=== PATIENT | male | born 1945 | race Two or more races ===

== ENCOUNTER 2023-12-04 23:13 | Inpatient (IN) | payer OTHER, SELFPAY ==
[2023-12-04 13:42] VITALS: BP 133/59
--- NOTE | 2023-12-04 14:38 | ED.GENMED ---
History of Present Illness
General
Chief Complaint: Musculo-Skeletal Complaint
Source: patient
Exam Limitations: none
Time Seen by Provider: 12/04/23 14:04
Nursing documentation reviewed up to this point in time: agreed with
History of Present Illness
History of Present Illness:
78-year-old male past medical history of COPD hypertension presenting to the emergency department today with concerns of jerking movement of the right extremities over the past 2 weeks. He contact his primary care debate about this and was referred
to neuro but cannot get an appointment for 4 months. Denies specific numbness weakness some discomfort coming from the neck into the right arm and right leg.
Past History
Past History
ED Past Medical History: COPD, HTN and Other (prostate)
ED Past Surgical History: None
Patient has exhibited threatening behavior?: No
PSI?: No
Social History
Living: with family
Review of Systems
Review of Systems
Allergies reviewed?: Yes
All Other Systems: ROS reviewed and negative except as documented in HPI and ROS
Phy Exam
Physical Exam
Physical Exam:
GENERAL: Alert , in no apparent distress
EYE: pupils equal and reactive
NECK: Supple, no significant adenopathy.
ENT: o/p clr, mmm.
CARDIAC: Regular rate and rhythm .
LUNGS: Clear breath sounds bilaterally, no acute respiratory distress, no wheezes/rales/rhonchi
ABDOMEN: Soft, without focal tenderness, no r/g, no cvat
NEUROLOGICAL: Alert and oriented, able to move purposefully with the right upper and right lower extremity very jerky and random movements when not with intention. Able to do finger-nose and [id number]-it-[id number]
SKIN: Warm and dry, skin intact.
MUSCULOSKELETAL: No edema, well perfused.
PSYCH: Normal and appropriate interaction.
Course
Orders/Labs/Results
Orders:
Orders
12/04/23 14:27
EKG [Electrocardiogram (*1)] Urgent
Reason for Study: Fatigue / Weakness
12/04/23 14:28
EKG- Treatment ONCE
12/04/23 14:30
CBC/With Diff [Complete Blood Count/With Diff] Urgent
CMP [Comprehensive Metabolic Panel] Urgent
12/04/23 15:02
CT Head & Neck Angio W/wo IV Urgent
Comment:
Reason For Exam: right nekc pain neuro symptoms
12/04/23 22:59
Admit/Transfer Patient As Directed
Co-Sign Provider:
Level of Care: Inpatient admission
Assign to:: Medical/Surgical
Physician / Group: Hospitalist
Diagnosis: movement disorder
Reason for Hospitalization: movement disorder
Expected length of stay greater than two midnights?: Yes
ELOS- Estimated Length of Stay in days: 3
I certify the patient meets the requirements for IP care: Yes
PRN Pain Medication Management As Directed
May give lesser potent ordered pain med per pt: Yes
preference::
Protocol:: Medication orders for pain may be administered in a
manner that supports deferring to patient preference
when the pt is:
- Requesting an ordered lesser potent pain medication.
Least to most potent pain medications are defined
as: acetaminophen < NSAID < tramadol < opioids
(morphine, oxycodone, hydromorphone).
- Requesting a lesser dose of the same medication IF
ORDERED.
- Requesting a less intrusive route of administration
if both routes are prescribed by the provider (PO <
IV).
12/04/23 23:00
Code Status As Directed
Resuscitation Status: Full Code
12/04/23 23:44
Acetaminophen [Tylenol/Feverall] 650 mg RECTAL Q4HPRN PRN
Acetaminophen [Tylenol] 650 mg PO Q4HPRN PRN
12/04/23 23:44
Consult Notification Routine
Specialty to Notify: Neurology
Date consulting provider notified: 12/05/23
Time consulting provider notified: 08:23
Notified:: Provider
NEUROLOGY CONSULT Urgent
Consulting Provider: Alfonso Kaiser
Was physician already notified: No
Reason for consult: chorea and right leg dyskenisea
Activity As Directed
Activity Level: With Assistance
NIH Stroke Scale As Directed
Directions: Per protocol
Comment: every shift and with any change in condition or mental status
Neurological Checks As Directed
Frequency: q4h
Additional Instructions:: q4h x 24h upon admission to the floor, then qshift & with any change in condition
and mental status
Patient Education As Directed
Type: Stroke education packet
Comment: provide to patient and family
Pneumatic Compression Sleeves As Directed
Type: Knee high
Vital Signs As Directed
Frequency: Per unit guidelines
Ot Eval And Treat Routine
Speech Therapy Eval & Treat Routine
DX Deep Vein Thrombosis Video Routine
12/05/23 06:47
Cardiovascular Evaluation IN AM
Abnormal Lab Results
12/04/23
14:30
RBC 4.54 L 10^6/uL
(4.70-6.10)
Immature Gran % 0.6 H %
(0-0.5)
BUN 22 H mg/dl
(9-20)
Glucose 125 H mg/dl
(70-99)
12/04/23 14:30
12/04/23 14:30
Vital Signs
Initial and Last Documented VS:
Initial Vital Signs
Temp Pulse Resp BP Pulse Ox
98.3 F 94 18 133/59 98
12/04/23 13:42 12/04/23 13:42 12/04/23 13:42 12/04/23 13:42 12/04/23 13:42
Last Documented Vital Signs
Temp Pulse Resp BP Pulse Ox
97.9 F 85 18 136/97 97
12/05/23 08:03 12/05/23 08:03 12/05/23 08:03 12/05/23 08:03 12/05/23 08:03
MDM/Problems Addressed
MDM/Problems Addressed:
78-year-old male presenting to the emergency department concerns of jerky random movements from the right side on his right upper and right lower extremity. Patient with significant difficulty with ambulation secondary to these jerking movements.
Patient with difficulty with finger-nose and [id number]. Does have full strength and sensation now. Otherwise here vital signs are normal labs are unremarkable CT angiogram of the head and neck does not show any immediate emergent pathology does
show some degree of stenosis diffusely.
*Critical Care Note
Total Time (30-74mins, 75-104mins- exclusive of procedures): Not Applicable
ED Attending Note
-
Portions of this chart may have been created with voice recognition software.� Occasional wrong word or��sound alike� substitutions may have occurred due to the inherent limitations of voice recognition software.
Discharge Plan
Departure
Patient Disposition: Admit
Date of Disposition: 12/04/23
Time of Disposition: 20:59
Admit to: Med/Surg
Admit to doctor: Ryley
Presentation/result/management discussed w/ accepting MD/DO: Hospitalist
Patient with high blood pressure during this ER visit?: No
Condition: Good
Covid-19: Not Applicable
Discharge Problem:
Dyskinesia
Interventions
Interventions:
*Risk Screen - Suicide Last Done: 12/04/23 13:42
*General Assessment Last Done: 12/04/23 13:42
*Neglect/Abuse Screening Last Done: 12/04/23 13:42
ED- Fall Risk Assessment Last Done: 12/04/23 20:48
*ED COVID-19 Vaccine History Last Done: 12/04/23 15:07
*Nursing Disposition Last Done: 12/04/23 23:41
ED-Musculoskeletal Assessment Last Done: 12/04/23 15:09
Discharge Date and Time
Discharge Date/Time: 12/04/23 23:42
[2023-12-04 14:39] LABS: % Basophils 1.3 % (0-2); % Eosinophils 5.4 % (0-6); % Immature Granulocytes 0.6 % (0-0.5); % Lymphocytes 25.3 % (20.5-51.1); % Monocytes 9.1 % (1.7-9.3); % Neutrophils 58.3 % (42.2-75.2); Absolute Basophils 0.1 10^3/uL (0-0.2); Absolute Eosinophils 0.3 10^3/uL (0-0.7); Absolute Lymphocytes 1.4 10^3/uL (1.2-3.4); Absolute Monocytes 0.5 10^3/uL (0.1-0.6); Absolute Neutrophils 3.1 10^3/uL (1.4-6.5); Hematocrit 40.3 % (39.0-52.0); Hemoglobin 13.9 g/dL (13.0-18.0); Mean Corp Hgb Conc. 34.5 g/dL (33.0-37.0); Mean Corpuscular Hgb 30.6 pg (27.0-31.0); Mean Corpuscular Volume 88.8 fL (80.0-94.0); Mean Platelet Volume 10.3 fL (7.4-10.4); Nucleated Red Blood Cells % 0 % (-); Platelet Count 197 10^3/uL (130-400); Red Blood Cell Count 4.54 10^6/uL (4.70-6.10); Red Cell Dist. Width 13.7 % (11.5-14.5); White Blood Cell Count 5.4 10^3/uL (4.8-10.8)
[2023-12-04 14:52] LABS: ALT (SGPT) 28 U/L (0-50); AST (SGOT) 35 U/L (17-59); Albumin 4.1 g/dl (3.5-5.0); Alkaline Phosphatase 51 U/L (38-126); Blood Urea Nitrogen 22 mg/dl (9-20); Calcium 9.5 mg/dl (8.4-10.2); Carbon Dioxide 28 mmol/L (22-30); Chloride 103 mmol/L (98-107); Glucose 125 mg/dl (70-99); Potassium 4.8 mmol/L (3.5-5.1); Sodium 137 mmol/L (135-145); Total Bilirubin 0.9 mg/dl (0.2-1.3); Total Protein 6.8 g/dl (6.3-8.2); eGFR > 60.00
[2023-12-04 15:09] VITALS: BMI 23.9
[2023-12-04 21:19] VITALS: BP 134/65
--- NOTE | 2023-12-04 22:50 | HPS.HSE ---
Family Physician
-
Family Physician: * NONE
Chief Complaint
-
dyskenesia
History of Present Illness
78-year-old man with a past medical history of COPD and hypertension, presents to the emergency department with concerns of worsening jerking movement of the right extremities over the past 2 weeks. He cannot get an appointment with neurology
sooner than for 4 months. He denies specific numbness weakness some discomfort coming from the neck into the right arm and right leg. He is having difficulty standing because of the jerking.
Medical History
Past Medical History
Past Medical History: Reports Other
Additional Past Medical History:
COPD,
essential HTN
prostate BPH
past episode of syncope
Past Surgical History: Reports None
Social History
Tobacco: Non-smoker
Alcohol: None
Drug: None
Family History
Family History: Not pertinent
Allergies / Home Medications
Allergies reflects when Allergies were last updated in [facility].
Home Medications with original date entered in [facility]
Allergy/Medication List:
Allergies
Allergy/AdvReac Type Severity Reaction Status Date / Time
erythromycin base Allergy Unknown Verified 11/30/21 08:22
Sulfa (Sulfonamide Allergy Unknown Verified 11/30/21 08:22
Antibiotics)
He likely takes Amlodipine 5mg PO BID
If medication reconciliation has not been performed, why?: Medication List N/A
Review of Systems
-
History Source: Patient
A 12 point ROS was completed and negative except as noted: Yes
Physical Exam
Vital Signs
Vital Signs
Temp Pulse Resp BP Pulse Ox
98.3 F 73 16 134/65 99
12/04/23 21:19 12/04/23 22:15 12/04/23 22:15 12/04/23 21:19 12/04/23 21:19
Physical Exam
General: Well Developed, Well Nourished, Conversant and Appears in Distress; No Comfortable
HEENT: No Ptosis, Nose Appears Normal and Ears Appear Normal
Respiratory: Clear
Cardiac: S1/S2 and Regular Rhythm
GI: Soft, Non Tender and Non Distended
Musculoskeletal: No Clubbing, No Cyanosis and No Edema
Skin: Warm and Dry; No Rash
Neuro: Awake, Alert, Oriented and AO x 3
Psych: Calm
Laboratory Results
-
12/04/23 14:30
12/04/23 14:30
Laboratory Results
Total Bilirubin 0.9 mg/dl (0.2-1.3) 12/04/23 14:30
AST 35 U/L (17-59) 12/04/23 14:30
ALT 28 U/L (0-50) 12/04/23 14:30
Alkaline Phosphatase 51 U/L (38-126) 12/04/23 14:30
Data Reviewed
-
Lab Data: Labs Reviewed by me
Impression/Plan
-
IMPRESSION:
78 man with jerking right leg. CT shows:
No acute intracranial hemorrhage.
Minor chronic microvascular white matter ischemic change.
Moderate to advanced global atrophy.
Right sphenoid sinusitis.
CT angiography of the neck:
Normal aortic branch pattern.
RIGHT carotid system:
Proximal ICA noncalcified plaque. Estimated luminal diameter reduction of 55 and 60%.
Mild partially calcified plaque involving the distal cervical ICA without hemodynamically significant stenosis.
LEFT carotid system:
Plaque at the common carotid artery origin origin with estimated luminal diameter reduction of 50%.
Mild plaque at the bulb without stenosis. Proximal ICA, with estimated luminal diameter reduction of 70-75%.
Small caliber left vertebral artery; developmental hypoplasia versus less likely left likely dissection (age indeterminate).
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
Diffuse confluent calcified plaque involving the cavernous ICA, bilaterally.
Segmental 50% stenosis suggested at the junction of the right petrous and cavernous ICA. No aneurysm.
No cerebral artery aneurysm, significant stenosis, thrombus, or occlusion.
Diffuse hypoplasia of the basilar artery. No aneurysm. No significant stenosis.
PLAN:
1. Jerking of right leg, cause not known, need to r/o nat's chorea
Neurology consult
MRI in am
Full code
VCD for DVTp
[2023-12-04 23:20] VITALS: BP 134/71
[2023-12-04 23:43] VITALS: BMI 22.5
[2023-12-05 07:45] LABS: HDL Cholesterol 38 mg/dl; LDL Cholesterol, Calculated 121 mg/dl; Total Cholesterol 185 mg/dl (50-199); Triglyceride 130 mg/dl (10-149); Very Low Density Lipoprotein 26 mg/dl (0-30)
[2023-12-05 08:03] VITALS: BP 136/97
--- NOTE | 2023-12-05 08:59 | W.PN.HOSP.TC ---
Today's Communication/Plan
-
Repeat MRI with contrast now. Neurology eval.
Assessment / Plan
Assessment / Plan
Physical exam:
General: Well Developed, Well Nourished and No Apparent Distress
HEENT: Normocephalic, Atraumatic and Moist Mucous Membranes
Respiratory: Clear to Auscultation; Negative Wheezes, Rales or Rhonchi
Cardiac: Regular Rhythm and S1/S2
GI: Soft, Nontender and Nondistended
Musculoskeletal: No Clubbing, No Cyanosis and No Edema
Neuro: Awake, Alert and Oriented, dyskinetic movements right leg and arm, paresthesias present. 4 out of 5 all 4 extremities. No diadochokinesia. DTR 2+ symmetrical.
Psych: Calm, normal judgment and insight
A/P:
Dyskinetic movements and abnormal brain MRI:
Differential includes stroke versus chorea secondary to infectious lesion or rule out metastatic lesions.
Aspirin and Plavix
Reviewed MRI of the brain and CTA of the head and neck
Plan to review MRI of the brain with gadolinium this time
Discussed with neurology today
Plan to start him on Cogentin
NIH score
Check carotid ultrasound
PT OT eval
Checking serology including B12, folate, TSH, CRP, ferritin
Discussed with daughter at bedside
Hypertension:
Patient is on medication from [facility], Cilnidipine 5 mg p.o. daily
Instructed patient to hold off on medication due to permissive hypertension and might be able to restart tomorrow depending on clinical scenario
Monitor blood pressure and add medications as needed
Dyslipidemia:
Start statins today
LDL 121
DVT prophylaxis:
Lovenox SQ
CODE STATUS:
Full code
Total time spent on today's encounter was 52 minutes which included time spent in counseling the patient/family regarding diagnosis and treatment plan as listed above, goals of care, and symptom management. Case was discussed with nursing staff,
specialists, and care coordinators/case management. All labs and imaging personally reviewed by me. Remainder the time spent in detailed review of previous records, lab data, imaging, and other medical provider documentation.
Anticipated Discharge: 24 - 48 hours
Subjective/Interval History
-
Date of Service: December 05, 2023
Patient with tremors on right leg and right arm, complains of some paresthesias. Generalized weakness without focality. No chest pain or shortness of breath. Afebrile
Objective Data
-
Vital Signs:
Vital Signs
Temp Pulse Resp BP Pulse Ox
97.9 F 85 18 136/97 97
12/05/23 08:03 12/05/23 08:03 12/05/23 08:03 12/05/23 08:03 12/05/23 08:03
I&O
12/04/23 12/05/23 12/06/23
06:59 06:59 06:59
Intake Total 240 / 240
Output Total 300 / 300
Balance -60 / -60
--- NOTE | 2023-12-05 11:19 | CON.NEURO ---
Neuro Assessment/Plan
Assessment
Subacute onset right hemibody involuntary movements
With abnormal changes in left parietal lobe suggestive of ischemic stroke. 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
Patient was not a candidate for either tenecteplase or intra-arterial thrombectomy due to timeframe out of window.
Plan
Check MRI of brain repeat with contrast to determine if changes are present that are not suggestive of an ischemic lesion
Provide aspirin 81 mg daily
Provide atorvastatin 80 mg due to LDL greater than 70
Rehabilitation evaluations
DVT prophylaxis
Provide benztropine 0.5 mg twice daily, caution as the patient has a reported history of benign prostatic hypertrophy
Consider lumbar puncture based on next MRI results
Check carotid ultrasound for possible stenosis
Check blood work for potential metabolic causes
Consider CT of chest abdomen and pelvis based on next MRI result
Will continue to follow patient.
Consultation
Order
Date of Consultation: 12/05/23
Requesting Provider: Hospitalists
Reason for Consult: Right-sided involuntary movement
Subjective/Objective
Subjective Data
Date of Service: December 05, 2023
Right-Handed
Two weeks ago then worsening in the past 3-4 days with involuntary movements. Only on the right none on the left. Synkinetic with jaw. Pins and needles sensations also.
Pruritus also, radiating pain from jaw into ear. Also lumbar radiation of pain from back into foot on the right chronic (from 12 years ago, 2011) but worsening 2 weeks ago.
Objective Data
Vital Signs
Temp Pulse Resp BP Pulse Ox
36.6 C 85 18 136/97 97
12/05/23 08:03 12/05/23 08:03 12/05/23 08:03 12/05/23 08:03 12/05/23 08:03
Lab Results
12/04/23 14:30
12/04/23 14:30
Sodium 137 mmol/L (135-145) 12/04/23 14:30
Potassium 4.8 mmol/L (3.5-5.1) 12/04/23 14:30
BUN 22 mg/dl (9-20) H 12/04/23 14:30
Glucose 125 mg/dl (70-99) H 12/04/23 14:30
Calcium 9.5 mg/dl (8.4-10.2) 12/04/23 14:30
LDL Cholesterol, Calc 121 mg/dl 12/05/23 06:47
Patient Allergies
erythromycin base Allergy (Verified 12/04/23 23:05)
Unknown
Sulfa (Sulfonamide Antibiotics) Allergy (Verified 12/04/23 23:05)
Unknown
CVA Assessment
Onset of Stroke Symptoms
Onset of symptoms known: No
Date of onset of symptoms: 12/02/23
Time pt last seen normal is known: No
Date last time pt seen normal: 11/21/23
NIH Stroke Score
Level of Consciousness: 0 - Alert
LOC Questions: 0-Answers both correctly
LOC Commands: 0-Performs both correctly
Best Horizontal Gaze: 0-Normal
Visual Narayanan: 0=Normal, no visual loss
Facial Palsy: 0=Normal, symmetrical
Motor - Right Arm: 0=No drift 10 seconds
Motor - Left Arm: 0=No drift 10 seconds
Motor - Right Le-No drift 5 seconds
Motor - Left Le-No drift 5 seconds
Limb Ataxia: 0-Absent
Sensation: 0-Normal
Best Language: 0-No aphasia
Dysarthria: 0-Normal
Extinction and Inattention: 0-No abnormality
Total Score:: 0
Tenecteplase Contraindications
Inclusion and Exclusion criteria reviewed: Yes
Review of Systems
-
History Source: Patient
All other systems: Reviewed and negative
EENT: Other (bitten right side of tongue); Negative Blurry Vision, Decreased Vision, Tinnitis or Swallowing Difficulty
Respiratory: Negative Trouble Breathing
Cardiac: Negative Chest Pain
Abdomen/GI: Negative Incontinence of Stool
Genitourinary: Negative Incontinence
Musculoskeletal: Muscle Pain and Back Pain (radiates)
Neuro: Headache (right-sided); Negative Dizzy
Physical Exam
-
General: No Apparent Distress and Appears Stated Age
Eyes: OU Absent Papilledema, Round OU, [place] Conjunctivae and No Ptosis
HEENT: Anicteric and Moist Mucous Membranes
Neck: Full Range of Motion
Respiratory: No Dyspnea
Cardiac: No JVD
GI: Non-distended
Skin: Unremarkable
Extremities: No Clubbing, No Cyanosis and No Edema
Psych: Intact Judgement/Insight
Extended Neurological Exam
Mood & Affect: Mood Unremarkable and Affect Unremarkable
Attention Span & Concentration: Awake, Alert, Interactive and Severe Difficulty with 2 Step Request
Memory: Unremarkable
Tremor: Hand Tremor Absent and Head Tremor Absent
Involuntary Movement: Other (Choreic movements of right lower greater than right upper extremity, variable in nature, amplitude, and duration)
Speech: Quality Unremarkable and Quantity Unremarkable
Cranial Nerve II: Left Eye: Pupillary Reactivity Unremarkable, Pupillary Size Unremarkable and Visual Narayanan Intact
Cranial Nerve II: Right Eye: Pupillary Reactivity Unremarkable, Pupillary Size Unremarkable and Visual Narayanan Intact
Cranial Nerves III, IV, : Extraocular Movement: Extraocular Movement Full in all Directions
Cranial Nerve VII: Facial Symmetry: Normal Facial Symmetry
Cranial Nerve VIII: Hearing: Unremarkable Hearing to Normal Conversational Volume
Cranial Nerves IX, X: Palate Movement: Palate Elevation Symmetric
Cranial Nerve XI: Shoulder Shrug: Unremarkable
Cranial Nerve XII: Tongue Protusion: Midline
Muscle Strength, Overall: Full Throughout
Muscle Bulk & Tone: Bulk Unremarkable and Tone Unremarkable
Pronator Drift: No Drift in Upper Extremities
Deep Tendon Reflexes: Unremarkable Throughout
Touch Sensation: Unremarkable
Coordination: [id number]-[id number] Testing Unremarkable
Babinski Sign: Absent Bilaterally
Gait & Station: Wide Based (mildly)
Data Reviewed
-
CT Head: Report Reviewed
MRA Head: Report Reviewed and Image Reviewed
Labs: Report Reviewed
Reviewed with: Physician, Nurse Practioner, Patient and Family
Old Records: Summarized
Medications
-
Active Medications
Generic Name Dose Route Start Last Admin
Trade Name Freq PRN Reason Stop Dose Admin
Acetaminophen 650 mg 12/04/23 23:44
Acetaminophen 650 Mg Rectal Suppository RECTAL 01/01/24 23:43
Q4HPRN PRN
SUAZO, mild pain, or temp >100.4F
Acetaminophen 650 mg 12/04/23 23:44
Acetaminophen 325 Mg Tablet PO 01/01/24 23:43
Q4HPRN PRN
SUAZO, mild pain, or temp >100.4F
Sodium Chloride 0 flush 12/04/23 23:00
Sodium Chloride 0.9% (Flush) Syringe IV 01/01/24 22:59
PER PROTOCOL DEISY
Past History
Past History
ED Past Medical History: COPD, HTN and Other (prostate enlargement, bilateral arm FX)
ED Past Surgical History: Orthopedic (ORIF bilaterally)
Patient has exhibited threatening behavior?: No
PSI?: No
Social History
Tobacco: Non-smoker
Alcohol: None
Drug: None
Living: with family
Family History
Family History: Other (reviewed and non-contributory)
[2023-12-05] MEDS: COGENTIN 0.5 MG PO ×2 (11:59→20:25)
[2023-12-05] MEDS: ASPIR LOW (ENTERIC COATED) 81 MG PO (12:50)
--- NOTE | 2023-12-05 13:32 | PTOTSP ---
SPEECH THERAPY SWALLOW EVALUATION:
Patient exhibits grossly functional oropharyngeal swallow at this time. No signs of aspiration at this time. Patient remains at risk for dysphagia/aspiration given differential diagnoses including CVA, brain lesion, Clark's chorea. Patient
reporting difficulty with dry/hard textures, though none observed during evaluation. Discussed option for implementing modified diet (i.e. IDDSI Level 6 Soft and Bite Size), though patient reported he would prefer Regular texture diet at this time,
with patient/daughter to select moist/soft items from Regular menu, which appears reasonable given lack of oral dysphagia at bedside. Recommend thin liquids. Medications whole with liquid, one at a time. Aspiration precautions including: Upright
positioning; Small single sips/bites; Slow rate of intake; Alternate textures; Intersperse liquids; Select soft/moist items. Supervision/assistance with meals. Monitor for signs of aspiration. Speech therapy to follow briefly, assess diet tolerance
and modify as appropriate, determine indication for instrumental assessment of swallow if appropriate, provide continued diagnostic swallow therapy at the acute care level, and complete full speech/language/cognitive communication evaluation.
RECOMMEND:
1) Regular texture diet, thin liquids
2) Medications whole with liquid, one at a time
3) Aspiration precautions including: Upright positioning; Small single sips/bites; Slow rate of intake; Alternate textures; Intersperse liquids; Select soft/moist items. Supervision/assistance with meals. Monitor for signs of aspiration
4) Speech therapy to follow and complete full speech/language/cognitive communication evaluation
[2023-12-05 15:48] VITALS: BP 161/70
[2023-12-05 17:18] LABS: C-Reactive Protein < 5.00 mg/L (0.0-10.00)
[2023-12-05] MEDS: LIPITOR 80 MG PO (17:22)
[2023-12-05] MEDS: LOVENOX 40 MG SC (17:22)
[2023-12-05 17:49] LABS: TSH Reflex To Free T4 1.97 uIU/ml (0.47-4.68)
[2023-12-05 17:53] LABS: Ferritin 80.8 ng/ml (17.9-464.0)
[2023-12-05 18:25] LABS: Folate 7.6 ng/ml (2.76-20); Vitamin B12 901 pg/ml (239-931)
[2023-12-05 23:27] VITALS: BP 146/71
[2023-12-06 07:30] VITALS: BP 124/65
[2023-12-06 08:19] LABS: Hematocrit 40.7 % (39.0-52.0); Hemoglobin 14.5 g/dL (13.0-18.0); Mean Corp Hgb Conc. 35.6 g/dL (33.0-37.0); Mean Corpuscular Hgb 30.9 pg (27.0-31.0); Mean Corpuscular Volume 86.8 fL (80.0-94.0); Mean Platelet Volume 10.7 fL (7.4-10.4); Platelet Count 189 10^3/uL (130-400); Red Blood Cell Count 4.69 10^6/uL (4.70-6.10); Red Cell Dist. Width 13.4 % (11.5-14.5)
[2023-12-06] MEDS: ASPIR LOW (ENTERIC COATED) 81 MG PO (08:24)
[2023-12-06] MEDS: COGENTIN 0.5 MG PO (08:24)
[2023-12-06 08:43] LABS: Blood Urea Nitrogen 21 mg/dl (9-20); Calcium 9.2 mg/dl (8.4-10.2); Carbon Dioxide 24 mmol/L (22-30); Chloride 104 mmol/L (98-107); Estimated Creatinine Clearance 48 ml/min; Glucose 86 mg/dl (70-99); Potassium 4.2 mmol/L (3.5-5.1); Sodium 135 mmol/L (135-145); eGFR > 60.00
--- NOTE | 2023-12-06 08:57 | W.PN.NEURO.1 ---
Today's Communication / Plan
-
As there was evidence by MRI of brain repeated with contrast (and although this still may represent an ischemic lesion) check lumbar puncture to evaluate for inflammatory changes
Continue newly initiated aspirin 81 mg daily
Continue newly initiated atorvastatin 80 mg due to LDL greater than 70
Replace benztropine with brivaracetam in an attempt to reduce the patient's choreic movements. Patient may require as outpatient deutetrabenazine
Request vascular surgery consultation due to newly discovered left internal carotid artery stenosis greater than 70% in the same territory as the patient's suggested left parietal stroke
Check blood work for potential metabolic causes
Neuro Assessment/Plan
Assessment
Subacute onset right hemibody involuntary movements
With abnormal changes in left parietal lobe suggestive of ischemic stroke.
Differential diagnosis includes right sided hemichorea secondary to subacute ischemic stroke, less likely based on the patient's worsening over time
Patient was not a candidate for either tenecteplase or intra-arterial thrombectomy due to timeframe out of window.
Plan
As there was evidence by MRI of brain repeated with contrast (and although this still may represent an ischemic lesion) check lumbar puncture to evaluate for inflammatory changes
Continue newly initiated aspirin 81 mg daily
Continue newly initiated atorvastatin 80 mg due to LDL greater than 70
Replace benztropine with brivaracetam in an attempt to reduce the patient's choreic movements. Patient may require as outpatient deutetrabenazine
Request vascular surgery consultation due to newly discovered left internal carotid artery stenosis greater than 70% in the same territory as the patient's suggested left parietal stroke
Rehabilitation evaluations
DVT prophylaxis
Check blood work for potential metabolic causes
Consider CT of chest abdomen and pelvis
Will continue to follow patient.
Subjective/Objective
Subjective Data
Date of Service: December 06, 2023
Patient reports no improvement with addition of benztropine. No side effects with same.
Objective Data
Vital Signs
Temp Pulse Resp BP Pulse Ox
36.8 C 63 18 124/65 99
12/06/23 07:30 12/06/23 07:30 12/06/23 07:30 12/06/23 07:30 12/06/23 07:30
Lab Results
12/06/23 07:43
12/06/23 07:43
Sodium 135 mmol/L (135-145) 12/06/23 07:43
Potassium 4.2 mmol/L (3.5-5.1) 12/06/23 07:43
BUN 21 mg/dl (9-20) H 12/06/23 07:43
Glucose 86 mg/dl (70-99) 12/06/23 07:43
Calcium 9.2 mg/dl (8.4-10.2) 12/06/23 07:43
LDL Cholesterol, Calc 121 mg/dl 12/05/23 06:47
Vitamin B12 901 pg/ml (239-931) 12/05/23 06:47
Patient Allergies
erythromycin base Allergy (Verified 12/04/23 23:05)
Unknown
Sulfa (Sulfonamide Antibiotics) Allergy (Verified 12/04/23 23:05)
Unknown
Review of Systems
-
History Source: Patient
All other systems: Reviewed and negative
Physical Exam
-
General: No Apparent Distress and Appears Stated Age
Eyes: Round OU, Lavina Conjunctivae and No Ptosis
HEENT: Anicteric and Moist Mucous Membranes
Neck: Full Range of Motion
Respiratory: No Dyspnea
Cardiac: No JVD
GI: Non-distended
Skin: Unremarkable
Extremities: No Clubbing, No Cyanosis and No Edema
Psych: Intact Judgement/Insight
Extended Neurological Exam
Mood & Affect: Mood Unremarkable and Affect Unremarkable
Attention Span & Concentration: Awake, Alert and Interactive
Memory: Unremarkable
Tremor: Hand Tremor Absent and Head Tremor Absent
Involuntary Movement: Other (Choreic movements of right lower greater than right upper extremity, variable in nature, medium amplitude, and duration)
Speech: Quantity Unremarkable; Negative Quality Unremarkable (Minimally accented)
Cranial Nerve II: Left Eye: Pupillary Size Unremarkable and Visual Narayanan Grossly Intact
Cranial Nerve II: Right Eye: Pupillary Size Unremarkable and Visual Narayanan Grossly Intact
Cranial Nerves III, IV, : Extraocular Movement: Grossly Intact
Cranial Nerve VII: Facial Symmetry: Normal Facial Symmetry
Cranial Nerve VIII: Hearing: Unremarkable Hearing to Normal Conversational Volume
Muscle Strength, Overall: Spontaneously Moves (All extremities)
Muscle Bulk & Tone: Bulk Unremarkable and Tone Unremarkable
Touch Sensation: Unremarkable
Coordination: Reaches for Objects without Difficulty
Data Reviewed
-
MRI Head: Report Reviewed and Image Reviewed
Labs: Ordered and Report Reviewed
Reviewed with: Nurse Practioner and Patient
Old Records: Summarized
Past History
Past History
ED Past Medical History: COPD, HTN, Other and Other (prostate enlargement, bilateral arm FX, abnormal MRI of brain)
ED Past Surgical History: Orthopedic (ORIF bilaterally)
Patient has exhibited threatening behavior?: No
PSI?: No
Social History
Tobacco: Non-smoker
Alcohol: None
Drug: None
Living: with family
Family History
Family History: Other (reviewed and non-contributory)
Medications
-
Medications:
Generic Name Dose Route Start Last Admin
Trade Name Freq PRN Reason Stop Dose Admin
Acetaminophen 650 mg 12/04/23 23:44
Acetaminophen 650 Mg Rectal Suppository RECTAL 01/01/24 23:43
Q4HPRN PRN
SUAZO, mild pain, or temp >100.4F
Acetaminophen 650 mg 12/04/23 23:44
Acetaminophen 325 Mg Tablet PO 01/01/24 23:43
Q4HPRN PRN
SUAZO, mild pain, or temp >100.4F
Aspirin 81 mg 12/05/23 13:00 12/06/23 08:24
Aspirin 81 Mg (Enteric Coated) Tablet PO 01/02/24 12:59 81 mg
DAILY DEISY Administration
Atorvastatin Calcium 80 mg 12/05/23 18:00 12/05/23 17:22
Atorvastatin (Lipitor) 80 Mg Tablet PO 01/02/24 17:59 80 mg
QPM DEISY Administration
Benztropine Mesylate 0.5 mg 12/05/23 12:00 12/06/23 08:24
Benztropine 0.5 Mg Tablet PO 01/02/24 11:59 0.5 mg
BID DEISY Administration
Enoxaparin Sodium 40 mg 12/05/23 18:00 12/05/23 17:22
Enoxaparin Sodium 40 Mg/0.4 Ml Syringe SC 01/02/24 17:59 40 mg
QPM DEISY Administration
Sodium Chloride 0 flush 12/04/23 23:00
Sodium Chloride 0.9% (Flush) Syringe IV 01/01/24 22:59
PER PROTOCOL DEISY
[2023-12-06] MEDS: BRIVIACT 100 MG PO (09:44)
[2023-12-06] MEDS: BRIVIACT 50 MG PO ×2 (09:44→21:00)
--- NOTE | 2023-12-06 10:47 | W.PN.HOSP.TC ---
Today's Communication/Plan
-
Plan for LP today. Plan for EEG. Vascular surgery consult
Assessment / Plan
Assessment / Plan
Physical exam:
General: Well Developed, Well Nourished and No Apparent Distress
HEENT: Normocephalic, Atraumatic and Moist Mucous Membranes
Respiratory: Clear to Auscultation; Negative Wheezes, Rales or Rhonchi
Cardiac: Regular Rhythm and S1/S2
GI: Soft, Nontender and Nondistended
Musculoskeletal: No Clubbing, No Cyanosis and No Edema
Neuro: Awake, Alert and Oriented, dyskinetic movements right leg and arm, paresthesias present. 4 out of 5 all 4 extremities. No diadochokinesia. DTR 2+ symmetrical.
Psych: Calm, normal judgment and insight
A/P:
Dyskinetic movements and abnormal brain MRI:
Differential includes stroke versus chorea secondary to infectious lesion or rule out metastatic lesions.
Aspirin and Plavix
Reviewed MRI of the brain and CTA of the head and neck
MRI of the brain with contrast concerning for ischemic stroke
Discussed with neurology today
Cogentin change to brivaracetam
NIH score
Checked carotid ultrasound and LICS present--> vascular surgery consulted
PT OT eval
Checking serology including [id number], folate-normal, TSH-normal, ferritin-80, CRP-pending
Plan for LP
Discussed with daughter at bedside today again
Hypertension:
Patient is on medication from [facility], Cilnidipine 5 mg p.o. daily
Instructed yesterday patient to hold off on medication due to permissive hypertension but today will be able to restart
Monitor blood pressure and add medications as needed
Dyslipidemia:
Started statins, atorvastatin 80 mg daily
LDL 121
DVT prophylaxis:
Lovenox SQ
CODE STATUS:
Full code
Total time spent on today's encounter was 52 minutes which included time spent in counseling the patient/family regarding diagnosis and treatment plan as listed above, goals of care, and symptom management. Case was discussed with nursing staff,
specialists, and care coordinators/case management. All labs and imaging personally reviewed by me. Remainder the time spent in detailed review of previous records, lab data, imaging, and other medical provider documentation.
Anticipated Discharge: 24 - 48 hours
Subjective/Interval History
-
Date of Service: December 06, 2023
Patient still have some tremors. Generalized weakness. Afebrile
Objective Data
-
Labs:
Laboratory Results
12/06/23 12/06/23 12/06/23
07:43 09:13 10:25
WBC 5.0
Hgb 14.5
Hct 40.7
Plt Count 189
PT Pending Pending
INR Pending Pending
APTT Pending
Sodium 135
Potassium 4.2
Chloride 104
Carbon Dioxide 24
BUN 21 H
Creatinine 1.2
Glucose 86
Calcium 9.2
Vital Signs:
Vital Signs
Temp Pulse Resp BP Pulse Ox
98.2 F 63 18 124/65 99
12/06/23 07:30 12/06/23 07:30 12/06/23 07:30 12/06/23 07:30 12/06/23 07:30
I&O
12/05/23 12/06/23 12/07/23
06:59 06:59 06:59
Intake Total 240 / 240
Output Total 300 / 300
Balance -60 / -60
[2023-12-06 10:52] LABS: INR 1.08; PT 13.9 Sec (11.4-14.6)
--- NOTE | 2023-12-06 11:14 | CM ---
Patient seen with daughter, initial assessment completed. Patient resides with his in a multiple story home, 4 steps to enter. Patient denies DME, VN, or SNF history. Patient is independent with ADLs, assists with cooking and cleaning.
Daughter is a physical therapist. Patient PCP Edwina Henson, pharmacy [facility]. Patient confirms prescription coverage, denies food, housing/utility, transportation insecurities at home, reports he has support from his and daughter. CM
discussed OT recommendations of outpatient therapy, awaiting PT recommendations. Patient/daughter agreeable to script for outpatient therapy. CM will continue to follow for all discharge planning needs.
Plan; home with script for outpatient PT/OT likely, watch for PT evaluations.
[2023-12-06 12:14] LABS: C-Reactive Protein < 5.00 mg/L (0.0-10.00)
[2023-12-06 13:25] VITALS: BP 144/76
--- NOTE | 2023-12-06 14:27 | CON.VAS ---
Addendum entered and electronically signed by Sung Samuel MD 12/06/23 18:01:
Seen and examined with PRANEETH Brown. Agree with findings as noted below. Briefly 78-year-old male with history of hypertension, tobacco use remotely (quit in 1986, prior to that 2 packs a day). Presents with 2 weeks of acute onset of involuntary right
upper and lower extremity movements. He denies any weakness in the upper or lower extremity. He is able to ambulate and able to do tasks (for example writing and eating etc. with the right upper extremity), but he developed spells of involuntary
movement. This was evident also while initially seeing him/obtaining history. Of note, at bedside with the patient where his daughters, 1 of whom is a physical therapist and was very beneficial in obtaining history. In addition his grandchildren.
Imaging demonstrated significant left carotid artery stenosis. Therefore we were asked to evaluate. Patient denies any antecedent or subsequent episodes of amaurosis or speech dysarthria. Again as noted above he denies weakness but just this
uncontrolled movement. His daughter also relays some facial or buccal issues with chewing that has been biting his cheek on the right side more so. Patient in addition notes that when he looks up he gets a little bit of dizziness after some period.
Review of systems significant for history of right buttock/thigh/calf likely claudication type symptoms. After 1000 m or so walking get significant discomfort. Has to stop and rest.
Exam/ He is awake and alert. He has active spastic involuntary movements of his right upper and lower extremity intermittently. His speech is fluent. No acute distress. 2+ upper extremity radial pulses palpable bilaterally. Breathing is
unlabored. Abdomen is soft, nondistended, nontender. Left lower extremity with 2+ femoral, popliteal, DP pulse palpable. On the right side he has a slightly weaker femoral pulse, it feels slightly like a thrill. Nonpalpable distally. Feet are
both warm. No rubor, no ulcerations. Neurologically with reasonable strength throughout right upper and lower extremity.
CT angiogram images reviewed. He has severe left internal carotid artery stenosis with heavy soft plaque that begins at the origin of the internal carotid artery with irregular flow channel, and subsequently resulted in a severe stenosis about 2 to
3 cm beyond the origin (see select images below).
Plan/ Severe left carotid artery stenosis in the setting of soft plaque, likely symptomatic. I reviewed his MRI report, and he had to 1 completed with contrast in 1 without. I am a little uncertain as to the interpretation of these results. The
initial MRI without contrast suggested restricted diffusion suspicious for small infarcts. The contrast-enhanced study demonstrated cortical enhancement that can be seen in the setting of 'subacute ischemia'. I am unclear if this represents area
of brain at risk that is not infarcted or whether this is infarcted brain. I think if it is the former, timing of revascularization is more pressing (though patient has been having ongoing symptoms for 2 weeks). I will discuss with neurology,
based on their interpretation of the MRI, and based on their other imaging studies. I will discuss whether CT perfusion may be of benefit here. Regardless I discussed extensively with the patient and his family carotid revascularization and my
recommendation based on likely symptomatic status. (I did discuss that in the asymptomatic setting the indications and timing may be different). Discussed modalities of revascularization including carotid endarterectomy, TCAR, transfemoral
stenting. Discussed differences therein. Discussed my recommendation based on symptomatic status, soft plaque, reasonable surgical candidate for carotid endarterectomy for stroke prevention. Discussed procedure at length. Discussed technical
aspects of procedure as well as anticipated recovery. Discussed risks including but not limited to bleeding, infection, cardiac complication/CO, cranial nerve injury, stroke (in the symptomatic setting up to 2 to 3%). He understands all and likely
wishes to proceed. Will discuss with neurology the aforementioned concerns/questions and then accordingly can likely schedule LEFT carotid endarterectomy.
Original Note:
Consultation
Consultation Request
Date/Time Consultation Performed: 12/06/23
Requesting Provider: Luis Del Cid MD
Performing Provider: Josie Brown NP-C for Sung Samuel MD
Reason for Consultation: Carotid artery stenosis
Medical History
-
Chief Complaint: Right sided involuntary movements
History of Present Illness:
This is a 78 year old right handed male with significant past medical history for HTN, COPD, and BPH who presented to [place] ED on 12/04/23 with RUE and RLE involuntary movements with onset roughly two weeks ago. Daughter is at bedside
contributing to HPI. Both daughter and patient note acute onset of persistent RUE and RLE 'jerking' involuntary movements and paraesthesia roughly 2+ weeks ago. He was referred to neurology but when he could not obtain an appointment for 4 months he
presented to ED. He underwent MRI of brain with and without contrast with both indicating left parietal subacute infarct. Head and neck CTA with left ICA stenosis of 70-75%, neurology recommended consult given likely symptomatic carotid stenosis. He
denies past medical history of arterial disease, evaluation by vascular surgeon, or vascular surgeries. However, he and daughter endorse undergoing work up for syncopal episodes in [facility] that included an MRI of ABD which resulted with evidence of
aortic plaque. He also endorses signs of claudication in RLE. He can walk about 2-3km before he gets onset of RLE calf cramping, which is relieved with rest. He endorses syncopal episodes were attributed to orthostasis. He also reports chronic RLE
pain from lower back to hip ongoing for roughly 12 years.
Past Medical History
Past Medical History: COPD, HTN and Other (BPH, bilateral arm fracture)
Past Surgical History: Orthopedic (ORIF bilateral upper extremity)
Social History
Tobacco: Former Smoker (reports 20 year smoking history)
Alcohol: None
Drug: None
Living: With Family
Allergies / Home Medications
Allergy/AdvReac Type Severity Reaction Status Date / Time
erythromycin base Allergy Unknown Verified 12/04/23 23:05
Sulfa (Sulfonamide Allergy Unknown Verified 12/04/23 23:05
Antibiotics)
Review of Systems
-
History Source: Patient
Constitutional: Reports No Symptoms
EENT: Reports No Symptoms
Respiratory: Reports No Symptoms
Cardiac: Reports No Symptoms
Vascular: Reports Leg Pain / Claudication, Numbness (RUE/RLE) and Tingling (RUE/RLE)
Abdomen/GI: Reports No Symptoms
: Reports No Symptoms
Musculoskeletal: Reports Other (Sporadic and constant jerking of RUE and RLE )
Skin: Reports No Symptoms
Neurological: Reports Numbness
Endocrine: Reports No Symptoms
Physical Exam
Vital Signs
Temp Pulse Resp BP Pulse Ox
98.2 F 63 18 124/65 99
12/06/23 07:30 12/06/23 07:30 12/06/23 07:30 12/06/23 07:30 12/06/23 07:30
Lab Results
12/06/23 07:43
12/06/23 07:43
Physical Exam
General: No Apparent Distress and Comfortable
HEENT: Normocephalic, Anicteric and Atraumatic
Respiratory: Non Labored Respirations
Cardiac: Negative JVD
GI: Non Distended
Skin: Warm, Dry and Other (BL feet warm and appear well perfused )
Neuro: AO x 3 and Tremors (sporadic jerking movement of RUE and RLE appreciated, equal BL UE and LE strength )
Pulses: Bilateral Femoral: +2 and Left Dorsalis Pedis: +1 (cannot palpate R DP pulse)
Assessment / Plan
-
Assessment: 78 year old male with right upper extremity and right lower extremity involuntary movements with accompanied left carotid stenosis, unclear if considered asymptomatic based on MRI.
Plan:
Given evidence of soft plaque and greater than 70% stenosis on CTA would recommend proceeding with left carotid endarterectomy, unclear on timing of surgery. If considered symptomatic would favor expeditious revascularization could consider surgery
this Tuesday12/12/23.
Reports signs and symptoms concerning for PAD will obtain US arterial duplex with DAVID/TBI
Dr. Sung Samuel to review case with neurology to determine timing for surgery.
I performed this shared service with the attending. I evaluated the patient [id number] and have entered clinical documentation as shown in the encounter note. I performed the following component(s): history and physical exam. Note that medical
decision making is not final until attested by vascular attending.
[2023-12-06 14:55] VITALS: BP 156/64; BP_SYST 76
[2023-12-06 15:54] VITALS: BP 135/70; BP_SYST 81
[2023-12-06 16:02] VITALS: BP 135/70
--- NOTE | 2023-12-06 16:30 | EEG.RPT ---
Electroencephalogram Report
Recording
Date of EE12/06/23
Type of EEG: Routine
Length of EEG recordin minutes
Done with Video Recording: Yes
Patient Status: Inpatient
Recording Conditions: Awake, Drowsy and Asleep
Hyperventilation Performed: No
Photic Stimulation Performed: Yes
Report
GREATER THAN 1 HOUR EEG INTERPRETATION:
Unremarkable EEG for age
CLINICAL CORRELATION:
A normal EEG does not rule out a diagnosis of epilepsy. Limb movements were not associated with epileptiform changes. If clinical suspicion for seizure persists, a prolonged recording may be warranted.
Clinical correlation is advised.
METHODS:
A 21 channel digitized electroencephalogram (EEG) was performed using the 10/20 international system of electrode placement and one-lead of ECG recorded. The [employer] quantitative EEG system was utilized.
ELECTROENCEPHALOGRAPHER IMPRESSION(S):
Quality of study
Good
Background
There was an unremarkable anterior-posterior voltage gradient of alpha frequency.
With eye opening the background activity changed to a low voltage mixture of frequencies.
There were no significant asymmetries of background activity noted.
Sleep
Drowsiness present
Stage 1 present
Stage 2 present
Photic Stimulation
No activation
ECG
Normal sinus rhythm
[2023-12-06 16:49] LABS: Spinal Fluid Glucose 49 mg/dl (40-70); Spinal Fluid Protein 41 mg/dl (12-60)
[2023-12-06 16:52] LABS: CSF Color Colorless; CSF Tube # 4; CSF Tube # Clarity Clear; White Blood Cell Count/CSF 1 mm^3 (0-5)
[2023-12-06 16:53] LABS: CSF Clarity Clear; CSF Color Colorless; CSF Tube # 1; Red Cell Count/CSF 33 mm^3; Red Cell Count/CSF 6 mm^3; White Cell Count/CSF 1 mm^3 (0-5)
[2023-12-06] MEDS: LOVENOX 40 MG SC (17:26)
[2023-12-06] MEDS: LIPITOR 80 MG PO (17:26)
[2023-12-06 23:48] VITALS: BP 125/82
[2023-12-07 07:57] VITALS: BP 130/64
[2023-12-07] MEDS: BRIVIACT 50 MG PO (08:26)
[2023-12-07] MEDS: ASPIR LOW (ENTERIC COATED) 81 MG PO (08:26)
--- NOTE | 2023-12-07 08:40 | W.PN.NEURO.1 ---
Today's Communication / Plan
-
Await pending lumbar puncture results
Continue newly initiated aspirin 81 mg daily
Continue newly initiated atorvastatin 80 mg due to LDL greater than 70
Replaced benztropine with brivaracetam in an attempt to reduce the patient's choreic movements. Patient may require as outpatient deutetrabenazine
Increase brivaracetam dosing from 50 mg twice a day to dosing of 100 mg twice a day in hopes of temporarily reducing movements until outpatient medication may be initiated
Appreciate vascular surgery consultation due to newly discovered left internal carotid artery stenosis greater than 70% in the same territory as the patient's left parietal stroke
Neuro Assessment/Plan
Assessment
Subacute onset right hemibody involuntary movements
With abnormal changes in left parietal lobe suggestive of ischemic stroke.
Differential diagnosis includes right sided hemichorea secondary to subacute ischemic stroke, less likely based on the patient's worsening over time
Patient was not a candidate for either tenecteplase or intra-arterial thrombectomy due to timeframe out of window.
Initial lumbar puncture results are unremarkable
Plan
Await pending lumbar puncture results
Continue newly initiated aspirin 81 mg daily
Continue newly initiated atorvastatin 80 mg due to LDL greater than 70
Replaced benztropine with brivaracetam in an attempt to reduce the patient's choreic movements. Patient may require as outpatient deutetrabenazine
Increase brivaracetam dosing from 50 mg twice a day to dosing of 100 mg twice a day in hopes of temporarily reducing movements until outpatient medication may be initiated
Appreciate vascular surgery consultation due to newly discovered left internal carotid artery stenosis greater than 70% in the same territory as the patient's left parietal stroke
Rehabilitation evaluations
DVT prophylaxis
Will continue to follow patient.
Subjective/Objective
Subjective Data
Date of Service: December 07, 2023
No change to movements.
Objective Data
Vital Signs
Temp Pulse Resp BP Pulse Ox
36.4 C 85 18 130/64 99
12/07/23 07:57 12/07/23 07:57 12/07/23 07:57 12/07/23 07:57 12/07/23 07:57
PT 13.9 Sec (11.4-14.6) 12/06/23 10:25
INR 1.08 12/06/23 10:25
APTT 32.0 Sec (23.4-35.0) 12/06/23 10:25
Sodium 135 mmol/L (135-145) 12/06/23 07:43
Potassium 4.2 mmol/L (3.5-5.1) 12/06/23 07:43
BUN 21 mg/dl (9-20) H 12/06/23 07:43
Glucose 86 mg/dl (70-99) 12/06/23 07:43
Calcium 9.2 mg/dl (8.4-10.2) 12/06/23 07:43
LDL Cholesterol, Calc 121 mg/dl 12/05/23 06:47
Vitamin B12 901 pg/ml (239-931) 12/05/23 06:47
Patient Allergies
erythromycin base Allergy (Verified 12/04/23 23:05)
Unknown
Sulfa (Sulfonamide Antibiotics) Allergy (Verified 12/04/23 23:05)
Unknown
Review of Systems
-
History Source: Patient
All other systems: Reviewed and negative
Physical Exam
-
General: No Apparent Distress and Appears Stated Age
Eyes: Round OU, [place] Conjunctivae and No Ptosis
HEENT: Anicteric and Moist Mucous Membranes
Neck: Full Range of Motion
Respiratory: No Dyspnea
Cardiac: No JVD
GI: Non-distended
Skin: Unremarkable
Extremities: No Clubbing, No Cyanosis and No Edema
Psych: Intact Judgement/Insight
Extended Neurological Exam
Mood & Affect: Mood Unremarkable and Affect Unremarkable
Attention Span & Concentration: Awake, Alert, Interactive and Mild Difficulty with 2 Step Request
Memory: Unremarkable
Tremor: Hand Tremor Absent and Head Tremor Absent
Involuntary Movement: Other (Choreic movements of right lower greater than right upper extremity, variable in nature, medium amplitude, and duration)
Speech: Quantity Unremarkable; Negative Quality Unremarkable (Minimally accented)
Cranial Nerve II: Left Eye: Pupillary Size Unremarkable and Visual Narayanan Grossly Intact
Cranial Nerve II: Right Eye: Pupillary Size Unremarkable and Visual Narayanan Grossly Intact
Cranial Nerves III, IV, : Extraocular Movement: Grossly Intact
Cranial Nerve VII: Facial Symmetry: Normal Facial Symmetry
Cranial Nerve VIII: Hearing: Unremarkable Hearing to Normal Conversational Volume
Muscle Strength, Overall: Spontaneously Moves (All extremities)
Muscle Bulk & Tone: Bulk Unremarkable and Tone Unremarkable
Touch Sensation: Unremarkable
Coordination: Reaches for Objects without Difficulty
Data Reviewed
-
EEG: Report Reviewed
Labs: Pending and Report Reviewed
Reviewed with: Physician, Patient and Family
Old Records: Summarized
Past History
Past History
ED Past Medical History: COPD, HTN, Other and Other (prostate enlargement, bilateral arm FX, abnormal MRI of brain)
ED Past Surgical History: Orthopedic (ORIF bilaterally)
Patient has exhibited threatening behavior?: No
PSI?: No
Social History
Tobacco: Non-smoker
Alcohol: None
Drug: None
Living: with family
Family History
Family History: Other (reviewed and non-contributory)
Medications
-
Medications:
Generic Name Dose Route Start Last Admin
Trade Name Freq PRN Reason Stop Dose Admin
Acetaminophen 650 mg 12/04/23 23:44
Acetaminophen 650 Mg Rectal Suppository RECTAL 01/01/24 23:43
Q4HPRN PRN
SUAZO, mild pain, or temp >100.4F
Acetaminophen 650 mg 12/04/23 23:44
Acetaminophen 325 Mg Tablet PO 01/01/24 23:43
Q4HPRN PRN
SUAZO, mild pain, or temp >100.4F
Aspirin 81 mg 12/05/23 13:00 12/07/23 08:26
Aspirin 81 Mg (Enteric Coated) Tablet PO 01/02/24 12:59 81 mg
DAILY DEISY Administration
Atorvastatin Calcium 80 mg 12/05/23 18:00 12/06/23 17:26
Atorvastatin (Lipitor) 80 Mg Tablet PO 01/02/24 17:59 80 mg
QPM DEISY Administration
Brivaracetam 50 mg 12/06/23 09:15 12/07/23 08:26
Brivaracetam 50 Mg Tablet PO 01/03/24 09:14 50 mg
BID DEISY Administration
Enoxaparin Sodium 40 mg 12/05/23 18:00 12/06/23 17:26
Enoxaparin Sodium 40 Mg/0.4 Ml Syringe SC 01/02/24 17:59 40 mg
QPM DEISY Administration
Sodium Chloride 0 flush 12/04/23 23:00
Sodium Chloride 0.9% (Flush) Syringe IV 01/01/24 22:59
PER PROTOCOL DEISY
--- NOTE | 2023-12-07 08:55 | W.PN.HOSP.TC ---
Today's Communication/Plan
-
Discharge planning today
Assessment / Plan
Assessment / Plan
Physical exam:
General: Well Developed, Well Nourished and No Apparent Distress
HEENT: Normocephalic, Atraumatic and Moist Mucous Membranes
Respiratory: Clear to Auscultation; Negative Wheezes, Rales or Rhonchi
Cardiac: Regular Rhythm and S1/S2
GI: Soft, Nontender and Nondistended
Musculoskeletal: No Clubbing, No Cyanosis and No Edema
Neuro: Awake, Alert and Oriented, dyskinetic movements right leg and arm, paresthesias present. 5 out of 5 all 4 extremities. No diadochokinesia. DTR 2+ symmetrical.
Psych: Calm, normal judgment and insight
A/P:
Dyskinetic movements and abnormal brain MRI:
Differential includes stroke versus chorea secondary to infectious lesion or rule out metastatic lesions or MS. At this point symptoms are more likely ischemic stroke final diagnosis.
Discussed with neurology and vascular surgery today and they both cleared him for discharge
Aspirin and statin
Discussed with patient case coordinator and arranging PT OT as outpatient
Prior to today:
Reviewed MRI of the brain and CTA of the head and neck
MRI of the brain with contrast concerning for ischemic stroke
Discussed with neurology today
Cogentin change to brivaracetam
NIH score
Checked carotid ultrasound and LICS present--> vascular surgery consulted
PT OT eval
Checking serology including X13-glffnu, folate-normal, TSH-normal, ferritin-80, CRP-less than 5
LP completed and no signs of infection
Discussed with daughter at bedside today again
Hypertension:
Patient is on medication from [facility], Cilnidipine 5 mg p.o. daily
Instructed yesterday patient to hold off on medication due to permissive hypertension but today will be able to restart
Monitor blood pressure and add medications as needed
Dyslipidemia:
Started statins, atorvastatin 80 mg daily
LDL 121
DVT prophylaxis:
Lovenox SQ
CODE STATUS:
Full code
Anticipated Discharge: Today
Subjective/Interval History
-
Date of Service: December 07, 2023
Patient feels better overall. Afebrile
Objective Data
-
Labs:
Laboratory Results
12/07/23
08:34
WBC Pending
Hgb Pending
Hct Pending
Plt Count Pending
Sodium Pending
Potassium Pending
Chloride Pending
Carbon Dioxide Pending
BUN Pending
Creatinine Pending
Glucose Pending
Calcium Pending
Vital Signs:
Vital Signs
Temp Pulse Resp BP Pulse Ox
97.5 F 85 18 130/64 99
12/07/23 07:57 12/07/23 07:57 12/07/23 07:57 12/07/23 07:57 12/07/23 07:57
I&O
12/06/23 12/07/23 12/08/23
06:59 06:59 06:59
Intake Total 480 / 480
Balance 480 / 480
[2023-12-07 08:57] LABS: Hematocrit 40.8 % (39.0-52.0); Hemoglobin 14.4 g/dL (13.0-18.0); Mean Corp Hgb Conc. 35.3 g/dL (33.0-37.0); Mean Corpuscular Hgb 30.6 pg (27.0-31.0); Mean Corpuscular Volume 86.8 fL (80.0-94.0); Mean Platelet Volume 10.6 fL (7.4-10.4); Platelet Count 196 10^3/uL (130-400); Red Cell Dist. Width 13.3 % (11.5-14.5); White Blood Cell Count 4.8 10^3/uL (4.8-10.8)
[2023-12-07 10:41] LABS: Blood Urea Nitrogen 22 mg/dl (9-20); Calcium 9.5 mg/dl (8.4-10.2); Carbon Dioxide 24 mmol/L (22-30); Chloride 103 mmol/L (98-107); Estimated Creatinine Clearance 48 ml/min; Glucose 80 mg/dl (70-99); Potassium 4.3 mmol/L (3.5-5.1); Sodium 135 mmol/L (135-145); eGFR > 60.00
[2023-12-07 10:45] VITALS: BP 135/64; PULSE 76
--- NOTE | 2023-12-07 10:53 | W.PN.UPDATE ---
Update Note
Progress Note Update
I discussed MRI findings with radiologist. Confirms what appears to be subacute infarcts in the left parietal lobe. I discussed via [place] text with neurology as well who agree and agree with symptomatic nature of carotid stenosis. Discussed with
patient again and his granddaughter who is at the bedside. My recommendation for revascularization. Based on scheduling will plan surgery Tuesday upcoming 12/12/2023. From my standpoint okay for discharge and can be scheduled as an outpatient
procedure. However if patient is to remain in the hospital, we will plan surgery as an inpatient procedure.
Of note, we discussed his claudication symptoms right lower extremity as well. Discussed that we will review his ultrasounds and further discussed these symptoms/claudication with him once we have completed management of his carotid issues. (I did
discuss that he has claudication and therefore not an absolute indication that we have to revascularize).
[2023-12-07 11:07] VITALS: BP 135/64; PULSE 76
--- NOTE | 2023-12-07 11:57 | CM ---
Patient seen with granddaughter, discussed PT/OT recommendation of outpatient therapy, patient agreeable, script placed in patients chart. Granddaughter to provide transportation home. CM will continue to follow for all discharge planning needs.
Plan; home with outpatient PT/OT script.
--- NOTE | 2023-12-07 12:07 | W.DCSUMMARY ---
Discharge Summary
Discharge Data
Date of Admission: 12/04/23
Date of Discharge: 12/07/23
-
Pending Results: No
Hospital Course
Patient is 78 years old male with history of hypertension presented to the hospital with involuntary movement over several days along with paresthesias. Neurology consulted. Patient underwent workup and it did reveal evidence of likely ischemic
stroke but other etiologies contemplated and will be in the look out as outpatient. LP did not reveal any infectious cause. Patient was started on aspirin and statins. He was also started on brivaracetam. Vascular surgery evaluated the patient
and will perform left carotid endarterectomy as outpatient as well as will reevaluate lower extremities peripheral vascular disease. Otherwise, patient hemodynamically and neurologically intact. Neurology cleared him for discharge. Vascular
surgery cleared him for discharge. tax services manager arranging for PT OT eval as outpatient. He will be discharged in stable condition today.
Discharge duration: 37 minutes
Discharge Plan
-
Patient Disposition: Home (Routine Discharge)
Discharge Diagnosis/Procedures: Stroke. Dyskinesia. Left carotid stenosis. Hypertension. Hyperlipidemia.
Diet: Low Cholesterol
Activity: As tolerated
Additional Activity: Resume blood pressure medication as prior to admission.
Blood Work: Please PCP to order CBC, CMP within 1 week
Referrals:
Primary care, provider [Other] (See less than 1 week)
Luis Del Cid MD [Active] - in two to three weeks
Sung Samuel MD [Active] - in one week
Prescriptions:
New
aspirin 81 mg Tablet,Delayed Release (Dr/Ec)
81 mg PO DAILY 30 Days Qty: 30 0RF
Briviact 50 mg Tablet
100 mg PO BID Qty: 60 0RF
atorvastatin 80 mg Tablet
80 mg PO QPM 30 Days Qty: 30 0RF
Discharge Orders:
Discharge Patient (As Directed); Ordered 12/07/23
Ordered By: Bakari Chaidez
Discharge Date and Time
Discharge Date/Time: 12/07/23 13:55
Print Language: ITALIAN
[2023-12-07 12:28] VITALS: BP 136/72
[2023-12-09 02:01] LABS: C.neoformans Antigen Negative (Negative)
[2023-12-09 02:06] LABS: Beta-2-Glycoprotein I Ab. IgA <10 SAU (<=20); Beta-2-Glycoprotein I Ab. IgG <10 SGU (<=20); Beta-2-Glycoprotein I Ab. IgM <10 SMU (<=20)
[2023-12-09 07:21] LABS: Cardiolipin IgA Antibody <10 APL (<=11); Cardiolipin IgM Antibody <10 MPL (<=12); Cardiolipin Igg Antibody <10 GPL (<=14)
== END 2023-12-07 13:55 | disposition home or self-care (01) | DRG 66 ==
LOC: 4 EAST ACU 23:13
PROVIDERS: Physician Assistant; Radiology Diagnostic Radiology; ADMITTING PHYSICIAN Internal Medicine; ATTENDING PHYSICIAN Hospitalist; CONSULT PHYSICIAN Surgery Vascular Surgery; EMERGENCY PHYSICIAN Emergency Medicine; OTHER PHYSICIAN Psychiatry & Neurology Neurology
PROC: 009U3ZX Drainage of Spinal Canal, Percutaneous Approach, Diagnostic (ICD-10-PCS; 2023-12-06)
PROC: B01B1ZZ Fluoroscopy of Spinal Cord using Low Osmolar Contrast (ICD-10-PCS; 2023-12-06)
DX: I63.9 Cerebral infarction, unspecified (principal); I65.22 Occlusion and stenosis of left carotid artery; J32.3 Chronic sphenoidal sinusitis; L29.9 Pruritus, unspecified; Z87.891 Personal history of nicotine dependence; I73.9 Peripheral vascular disease, unspecified
CPT/HCPCS: 62328; 70496; 70498; 70551; 70552; 80048; 80053; 80061; 82040; 82042; 82607; 82728; 82746; 82784; 82945; 83873; 83916; 84157; 84443; 85025; 85027; 85610; 85730; 86039; 86140; 86146; 86147; 86148; 86255; 86592; 87015; 87070; 87102; 87116; 87205; 87327; 87476; 88108; 89051; 92610; 93005; 93880; 93922; 93925; 95813; 96372; 97162; 97166; 97535; 99285; A9575; Q9967

== ENCOUNTER 2023-12-12 06:12 | Inpatient (IN) | payer OTHER, SELFPAY ==
[2023-12-12] VITALS (29 sets, daily range): BP systolic 89–144; BP diastolic 44–81; BMI 22.8
[2023-12-12] MEDS: NSS 500 IV (06:55)
[2023-12-12] MEDS: BACTROBAN NASAL 1 GRAM NASAL (06:55)
[2023-12-12] MEDS: PERIDEX 0.12% ORAL RINSE 15 ML PO (06:56)
[2023-12-12 07:01] LABS: Hematocrit 42.9 % (39.0-52.0); Hemoglobin 14.8 g/dL (13.0-18.0); Mean Corp Hgb Conc. 34.5 g/dL (33.0-37.0); Mean Corpuscular Hgb 30.5 pg (27.0-31.0); Mean Corpuscular Volume 88.3 fL (80.0-94.0); Mean Platelet Volume 10.5 fL (7.4-10.4); Platelet Count 199 10^3/uL (130-400); Red Blood Cell Count 4.86 10^6/uL (4.70-6.10); Red Cell Dist. Width 13.6 % (11.5-14.5); White Blood Cell Count 6.3 10^3/uL (4.8-10.8)
--- NOTE | 2023-12-12 07:04 | W.SUR.PREOP ---
Pre-Operative Surgical Note
-
I have examined this patient prior to the performance of the scheduled procedure.
The patient's condition is unchanged from the time of the current History and
Physical and the patient is able to undergo the scheduled procedure.
[2023-12-12 07:07] LABS: APTT 30.8 Sec (23.4-35.0); INR 1.07; PT 13.7 Sec (11.4-14.6)
[2023-12-12 07:09] LABS: Blood Urea Nitrogen 14 mg/dl (9-20); Calcium 9.4 mg/dl (8.4-10.2); Carbon Dioxide 29 mmol/L (22-30); Chloride 100 mmol/L (98-107); Estimated Creatinine Clearance 45 ml/min; Glucose 102 mg/dl (70-99); Potassium 4.4 mmol/L (3.5-5.1); Sodium 138 mmol/L (135-145); eGFR 56.23
--- NOTE | 2023-12-12 09:06 | OR.RPT ---
Operative Report
Operative Report
PROCEDURE DATE: 12/12/2023
Preoperative diagnosis: Symptomatic left critical carotid artery stenosis.
Postoperative diagnosis: Same
Procedure: Left carotid endarterectomy with bovine pericardial patch angioplasty and intraoperative EEG/SSEP monitoring.
Surgeon: Jimmie
Home Health Care Worker: PRANEETH Jiang, required for all aspects of procedure including assistance with traction/countertraction, assistance with following of suture line, assistance with closure.
Complications: None
Anesthesia: General
Indications for procedure:
Symptomatic left carotid stenosis with infarct noted on left MRI, continued right upper extremity and lower extremity atypical symptoms. Risk/benefit/alternative of revascularization were all fully discussed. Patient understood and wished to
proceed.
Description of procedure:
Patient was identified brought to the operating room placed on the table in supine position. After the adequate administration of anesthesia and perioperative antibiotics he was prepped and draped in the standard surgical fashion. A standard
preoperative timeout was undertaken and everybody was in agreement the plan. A standard longitudinal incision was made in the left neck that was carried through the skin subcutaneous tissue. Using the electrocautery dissection was carried through
the platysma muscle layer and then alongside the anterior medial border of the sternocleidomastoid muscle. Then using a combination of sharp dissection with the Metzenbaum scissors and electrocautery I dissected along the anterior medial border of
the internal jugular vein. The common facial vein branch was noted to be a little bit cephalad, and was ligated between silk ties and then divided. I then deepened my retraction. The common carotid artery was identified and carefully dissected
away from the surrounding structures take great care to avoid any injury to the structures. A vessel loop was passed around it which was double looped, but not yet tightened. Note the vagus nerve was clearly visualized protected from harm's way.
It was somewhat adherent to the carotid bulb likely due to the dense inflammatory reaction created by the plaque. Without grasping the nerve (just gently retracting perineural tissues), I was able to tease the vagus nerve off the common and
proximal carotid artery. I then continued my dissection up the common carotid artery to the bulb staying only on the anterior surface of the carotid artery. Then I carried the dissection up to the internal carotid artery and then to the distal
internal carotid artery. I dissected at least 2 to 3 cm distal to the origin of the internal carotid artery (based on CT scan imaging, that is where the plaque ended). I identified where it was soft and carefully circumferentially dissected the
internal carotid artery with minimal mobilization and passed a vessel loop around it. Note the hypoglossal nerve was not visualized in her field, and was felt to be further cephalad. The patient was given an appropriate dose of heparin 7000 units.
Next I dissected the anterior surface of the external carotid artery and superior thyroid branches. These were then carefully circumferentially dissected with minimal mobilization and vessel loops passed around these which were double looped but
not yet tightened. After 3 minutes of heparin circulation time and confirmation of optimization of the blood pressure with my anesthesiology colleagues, I clamped the distal internal carotid artery where it was soft. There was no immediate EEG or
SSEP changes. After 1 minute of test clamp time there was no changes noted. Therefore at this point, the vessel loops on the external carotid artery and superior thyroid branches were tightened and the common carotid artery was clamped where it
was soft proximally. An arteriotomy was made on the common carotid artery with an 11 blade and extended using a [place] scissor. Was extended the arteriotomy onto the mid to distal internal carotid artery. There was severe stenosis causing
hemorrhagic friable plaque. This clearly appeared to be the source of his neurologic symptoms. A [place] was then used to endarterectomized the plaque. An endarterectomy plane was created, and the plaque was then endarterectomized. Distally I
feathered the plaque out to a nice clean endpoint in the distal internal carotid artery. Next I endarterectomized the intima back to normal intima in the common carotid artery, and the intima was cut flush there. I then grasped the plaque and
everted plaque out of the origin of the external carotid artery. The plaque was then sent off for specimen. The origin of the external carotid artery was carefully visualized and any fine debris were removed with fine forceps. Proximal and distal
endpoints were then carefully inspected. Any fine debris was removed with fine forceps, and the intima was noted to be nicely adherent proximally distally. Next any fine debris were removed throughout the endarterectomy bed with fine forceps. I
then flushed heparinized saline. I was very satisfied. Then, I used a bovine pericardial patch to sew a patch angioplasty with a running 6-0 Prolene suture. Prior to completing and tying down my suture line, I backbled sequentially each branch
and reclamped each branch prior to unclamping the next branch. I then irrigated with heparinized saline. Then I completed and tied down my suture line. We then restored flow in the common carotid and external carotid arteries. Finally, we
released flow in the internal carotid artery. There was excellent pulsatile flow in all 3 vessels. There was an excellent Doppler signal in the internal carotid artery distal to the patch with a good normal low resistance Doppler signal. There
was a good Doppler signal in the external carotid artery as well. Protamine was given to reverse the heparin. Hemostasis was completely achieved. We then irrigated and confirmed full hemostasis. We then closed in layers with 2-0 Vicryl layer to
reapproximate the sternocleidomastoid muscle, followed by 3-0 Vicryl platysma muscle running layer, followed by 4 Monocryl subcuticular stitch. Dermabond was applied. The patient tolerated procedure well. He awoke moving all extremities to
command with tongue in the midline.
--- NOTE | 2023-12-12 09:09 | W.SUR.POST ---
Surgical Immediate Post Op
Note
Pre Op Diagnosis: Carotid stenosis
Post Op Diagnosis: Same
Procedure Performed: Left carotid endarterectomy with bovine pericardial patch angioplasty and EEG monitoring
Primary Surgeon: Jimmie
Assist: Deidre MAYS
Anesthesia: General
Estimated Blood Loss: 15 cc
Fluids: See anesthesia flowsheet
Drains/Shunts: None
Specimens/Cultures: Carotid plaque
Doppler/Duplex/Angio (Y/N): Y
Complications: None
Operative Findings: Woke from anesthesia moving all extremities
[2023-12-12 10:07] LABS: Hematocrit 37.8 % (39.0-52.0); Hemoglobin 13.4 g/dL (13.0-18.0); Mean Corp Hgb Conc. 35.4 g/dL (33.0-37.0); Mean Corpuscular Hgb 31.1 pg (27.0-31.0); Mean Corpuscular Volume 87.7 fL (80.0-94.0); Platelet Count 175 10^3/uL (130-400); Red Blood Cell Count 4.31 10^6/uL (4.70-6.10); Red Cell Dist. Width 13.5 % (11.5-14.5); White Blood Cell Count 7.8 10^3/uL (4.8-10.8)
[2023-12-12 10:19] LABS: INR 1.15; PT 14.6 Sec (11.4-14.6)
[2023-12-12 10:20] LABS: APTT 32.2 Sec (23.4-35.0)
[2023-12-12] MEDS: NSS 1000 IV ×2 (10:30→19:58)
--- NOTE | 2023-12-12 10:38 | PTCARENOTE ---
Received pt from PACU in his bed with RN, telemetry, 2 liters nasal cannula with right radial arterial line transduced, calibrated and monitored, and IVF via left AC#20g protective catheter. He is awake and alert. Performed handoff neurologic exam,
benign. He is having involuntary movement of his right shoulder, arm and leg. He stated that has been since his recent CVA. Good peripheral pulses. Lungs CTA, pulse ox 98%. +BSX4. Fair appetite. He is aware he is on clear liquids and if his
swallowing is not an issue we can advance to solids as ordered. Ice pack to his left neck incision which is MANAGER [employer] with surgical glue intact. Site is approximated. His is having 4/10 left neck pain and did not want analgesia at this time. He was
oriented to the ICU and the plan of care regarding hourly neuro exams, bedrest until Dr. Samuel examines him tomorrow morning, and tomorrow morning the right radial arterial line will be DC's and we will ambulate him. He verbalized his understanding.
Safe environment maintained.
[2023-12-12 10:55] LABS: Blood Urea Nitrogen 13 mg/dl (9-20); Calcium 8.7 mg/dl (8.4-10.2); Carbon Dioxide 23 mmol/L (22-30); Chloride 106 mmol/L (98-107); Estimated Creatinine Clearance 49 ml/min; Glucose 115 mg/dl (70-99); Sodium 136 mmol/L (135-145); eGFR > 60.00
[2023-12-12] MEDS: ROXICODONE 5 MG PO (10:57)
--- NOTE | 2023-12-12 11:11 | CON.INTV ---
Consultation
Consultation Request
Date/Time Consultation Requested: 12/12/2023 - 909
Date/Time Consultation Performed: 12/12/2023 - 1050
Requesting Provider: DAVON Morales
Performing Provider: Qasim Greene MD
Reason for Consultation: s/p L-CEA
Medical History
-
Chief Complaint: Elective left CEA
History of Present Illness:
78-year-old male former tobacco smoker (quit 1986, [id number] Hx) with a past medical history of hypertension, COPD and bilateral internal carotid artery stenosis was who presents with elective left carotid endarterectomy. He was recently
hospitalized from 12/03ue to 2 right-sided body involuntary movements. Brain MRI on 12/05/2023 showed left parietal lobe restricted diffusion suspicious for subacute infarct. LP on 12/06/2023 was noncontributory with negative
paraneoplastic antibodies, negative VDRL and negative oligoclonal bands. CTA head/neck on 12/04/2023 showed bilateral internal carotid artery stenosis with left-sided ICA of 70 - 75% diameter;. Vascular surgery saw the patient during this
hospitalization and diagnosed with severe left carotid artery stenosis with symptoms and revascularization was discussed. He was seen by neurology and was started on aspirin + statin as well as brivaracetam. He was discharged home on these new
medications and told to follow-up with neurology as well as vascular surgery. He is now here for left-sided carotid endarterectomy.. Left carotid endarterectomy with bovine pericardial patch angioplasty performed today by Dr. Samuel. There were no
complications and he was transferred to the ICU postoperatively with critical care services consulted for additional management/recommendations.
When I saw the patient he was in bed, resting in no acute distress on room air breathing comfortably. Heart rate 63, BP via A-line 152/61, BP via NIBP 125/59, saturating 97% on room air. Currently on NS 0.9% at 80 cc/hr. he denies chest pain,
headache, abdominal pain, nausea, vomiting, diarrhea, fevers or chills. He has slight tenderness on the left neck at his operative site. In terms of his COPD, he does not currently have a molder trimmer, and is managed by his PCP with prn
albuterol. He says that he used to have a molder trimmer in the past when he lived in [facility].
PMHx: Hypertension, history of COPD, BPH, bilateral arm fracture, former tobacco use, bilateral internal carotid artery stenosis, history of CVA (left parietal lobe)
PSHx: ORIF bilateral upper extremity
Past Medical History
Past Medical History: Other (Above as per HPI)
Past Surgical History: Other (Above as per HPI)
Social History
Tobacco: Former Smoker (Quit in 1986, prior to that was 1.5-2 packs/day x 20 years))
Alcohol: None
Drug: None
Living: With Family
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
Family History
Family History: Other (Brother: Arthritis; unknown family history involving mother and father as they when the patient was very young (6 years old))
Allergies / Home Medications
Allergies
Allergy/AdvReac Type Severity Reaction Status Date / Time
erythromycin base Allergy Unknown Verified 12/12/23 06:19
house dust Allergy environmental Verified 12/12/23 06:19
allergies
pollen extracts Allergy seasonal Verified 12/12/23 06:19
allergies
Sulfa (Sulfonamide Allergy Unknown Verified 12/12/23 06:19
Antibiotics)
Home Medications
�Medication �Instructions �Recorded �Confirmed �Last Taken �Type
aspirin 81 mg tablet,delayed 81 mg PO DAILY 30 days #30 tabs 12/07/23 12/12/23 12/12/23 05:30 Rx
release
atorvastatin 80 mg tablet 80 mg PO QPM 30 days #30 tabs 12/07/23 12/12/23 12/11/23 20:00 Rx
brivaracetam 50 mg tablet 100 mg (2 x 50 mg) PO BID #60 tabs 08/12/12/23 12/12/23 05:30 Rx
(Briviact)
mecobalamin (vitamin B12) 1,000 1,000 mcg PO DAILY 12/09/23 12/12/23 12/11/23 08:00 History
mcg chewable tablet (B12 Active)
pyridoxine (vitamin B6) 500 mg 500 mg PO DAILY 12/09/23 12/12/23 12/11/23 08:00 History
tablet
Review of Systems
-
History Source: Patient
All other systems: Negative unless noted
Vitals / Labs / Diagnostic Testing
Vital Signs
Temp Pulse Resp BP Pulse Ox
97.2 F 75 16 94/46 99
12/12/23 10:12 12/12/23 10:45 12/12/23 10:45 12/12/23 10:15 12/12/23 10:45
Lab Data
12/12/23 09:48
12/12/23 09:48
Laboratory Results
12/12/23 12/12/23
06:47 09:48
PT 13.7 14.6
INR 1.07 1.15
APTT 30.8 32.2
Diagnostic Testing:
Physical Exam
-
HEENT: Normocephalic and Anicteric
Cardiovascular: S1/S2 and Peripheral Edema (Negative)
Respiratory: Wheeze (Negative), Rales (Negative), Rhonchi (Negative) and Non-Labored Respirations
GI: Soft, Non Distended, Non Tender and Normal Bowel Sounds
Neurology: AO x 3 and Tremors (Negative)
Skin: Warm and Dry
General: Respiratory Distress (Negative), Comfortable, Chills (Negative) and Sweats (Negative)
Assessment
-
Assessment: 78-year-old male former tobacco smoker (quit 1986) with a past medical history of hypertension, COPD and bilateral internal carotid artery stenosis was who presents with elective left carotid endarterectomy. He was recently
hospitalized from 12/03 � 12/07/2023 due to 2 right-sided body involuntary movements. Brain MRI on 12/05/2023 showed left parietal lobe restricted diffusion suspicious for subacute infarct. LP on 12/06/2023 was noncontributory with negative
paraneoplastic antibodies, negative VDRL and negative oligoclonal bands. CTA head/neck on 12/04/2023 showed bilateral internal carotid artery stenosis with left-sided ICA of 70 - 75% diameter;. Vascular surgery saw the patient during this
hospitalization and diagnosed with severe left carotid artery stenosis with symptoms and revascularization was discussed. He was seen by neurology and was started on aspirin + statin as well as brivaracetam. He was discharged home on these new
medications and told to follow-up with neurology as well as vascular surgery. He is now here for left-sided carotid endarterectomy.. Left carotid endarterectomy with bovine pericardial patch angioplasty performed on 12/12/[address] Samuel. There
were no complications and he was transferred to the ICU postoperatively with critical care services consulted for additional management/recommendations
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
Impression:
#Symptomatic left critical carotid artery stenosis s/p left carotid endarterectomy with bovine pericardial patch angioplasty (POD #0)
#Recent subacute left parietal lobe CVA
#History of COPD , uses prn albuterol at home - not currently in an acute exacerbation
#History of BPH
#Former tobacco use disorder
#Hypertension
Plan:
Postoperative surgical intensive care unit monitoring
Supplemental oxygen as needed to maintain SpO2 >88-94%
prn nebulized bronchodilators
Incentive spirometry encouraged 10x per hour for at least 4 hrs a day
Aspiration precautions
Pain control
Neuro and vascular checks per protocol
Maintain MAP>65
Replete electrolytes with K>4, Mg>2
Maintain euglycemia with goal BG 140-180
Vascular surgery following-correspondence and operative notes reviewed
Transfuse if needed to keep Hb>7g/dL, and plt>50k (given post-operative status)
DVT prophylaxis
Early nutrition
Early mobilization
Critical care statement: A total of 44 minutes of critical care time was provided for this patient today. This includes management of unstable vital signs, evaluation of the patient at bedside, reviewing the patient's pertinent medical records
including radiographs, microbiology, laboratory evaluations, and discussion with primary team, consultants, pharmacy, nutrition, physical therapy, case management, charge nurse, critical care nursing, and respiratory therapy.
[2023-12-12 11:42] LABS: Magnesium 1.9 mg/dl (1.6-2.3); Phosphorus 3.1 mg/dl (2.5-4.5)
--- NOTE | 2023-12-12 15:00 | PTCARENOTE ---
No changes in his assessment. He is awake and conversive. Left neck incision NOAH. Family at the bedside, aware of the plan of care. Reviewed the stroke packet and poinetd out the S/S of a stroke and the risk factors of a stroke.
[2023-12-12] MEDS: HEPARIN 5000 UNITS SC (16:20)
[2023-12-12] MEDS: LIPITOR 80 MG PO (17:59)
[2023-12-12] MEDS: BRIVIACT 100 MG PO (19:58)
--- NOTE | 2023-12-12 20:00 | PTCARENOTE ---
dehydrator, pt aaox3, denies pain, neuro checks as documented on work list. 2 LA IV x 2 WNL- NSS infusing per JUN. R nash AL WNL. POC discussed, call ella w/patient.
--- NOTE | 2023-12-13 | PTCARENOTE ---
no changes in pt assessment.
[2023-12-13] MEDS: HEPARIN 5000 UNITS SC ×2 (00:11→08:52)
--- NOTE | 2023-12-13 03:00 | PTCARENOTE ---
no changes in assessment, labs sent.
[2023-12-13 03:27] LABS: Hemoglobin 11.9 g/dL (13.0-18.0); Mean Corpuscular Hgb 29.9 pg (27.0-31.0); Mean Corpuscular Volume 85.4 fL (80.0-94.0); Mean Platelet Volume 10.5 fL (7.4-10.4); Platelet Count 180 10^3/uL (130-400); Red Blood Cell Count 3.98 10^6/uL (4.70-6.10); Red Cell Dist. Width 13.5 % (11.5-14.5); White Blood Cell Count 11.3 10^3/uL (4.8-10.8)
[2023-12-13 03:41] LABS: INR 1.19
[2023-12-13 03:42] LABS: APTT 35.3 Sec (23.4-35.0)
[2023-12-13 03:49] LABS: Blood Urea Nitrogen 17 mg/dl (9-20); Calcium 8.8 mg/dl (8.4-10.2); Carbon Dioxide 23 mmol/L (22-30); Chloride 109 mmol/L (98-107); Estimated Creatinine Clearance 59 ml/min; Glucose 124 mg/dl (70-99); Potassium 4.5 mmol/L (3.5-5.1); Sodium 135 mmol/L (135-145); eGFR > 60.00
[2023-12-13 06:00] VITALS: BMI 24.0
[2023-12-13 07:40] VITALS: BP 125/70
--- NOTE | 2023-12-13 08:14 | W.PN.VS ---
Addendum entered and electronically signed by Sung Samuel MD 12/13/23 09:08:
Addendum to neuro exam�tongue is midline.
Addendum entered and electronically signed by Sung Samuel MD 12/13/23 09:07:
Seen and examined with PRANEETH Brown. Agree with findings as noted below. Left neck incision clean dry and intact. No hematoma. Neurologically no focal deficits, moves all extremities well. Continued unchanged stable neuroexam with somewhat
uncontrolled flailing of right upper and lower extremity. All stable. Plan/as discussed and noted below.
Original Note:
Today's Communication / Plan
-
Patient seen and examined at bedside with Dr. Sung Samuel, below plan reviewed with attending.
Assessment/Plan
-
Assessment: POD#1 Left CEA
Plan:
Discontinue arterial line
Discontinue IV fluids
OOB to chair with progression to ambulation as tolerated
Possible discharge later this afternoon if headache improves
Subjective Data
-
Date of Service: December 13, 2023
Patient seen and examined at bedside, reports mild generalized headache. Denies unilateral weakness, vision changes, dysphagia, dysarthria, nausea, or vomiting.
Objective Data
-
Vital Signs
Temp Pulse Resp BP Pulse Ox
98.7 F 61 10 136/60 98
12/12/23 19:59 12/13/23 06:30 12/13/23 06:30 12/12/23 20:00 12/13/23 06:30
Intake and Output
12/12/23 12/13/23 12/14/23
06:59 06:59 06:59
Intake Total 2560 / 2560
Output Total 2100 / 2100
Balance 460 / 460
Intake:
Oral fluids 860 / 860
IV fluids (Total) 1700 / 1700
Normosol 100 / 100
Nss 1,000 ml @ 80 mls/hr IV . 1600 / 1600
[id number] [facility] Rx#:[id number]
Output:
Urine, Voided 2099 / 2099
Lab Results
12/13/23 03:16
12/13/23 03:16
Calcium 8.8 mg/dl (8.4-10.2) 12/13/23 03:16
Phosphorus 3.1 mg/dl (2.5-4.5) 12/12/23 09:48
Magnesium 1.9 mg/dl (1.6-2.3) 12/12/23 09:48
Physical Exam
-
AAOx3, NAD
Left neck site CDI, no evidence of hematoma, tongue midline, face symmetrical
No tachycardia
No dypsena
ABD non-distended
BL UE and LE with equal strength, RUE and RLE continue with pre procedure involuntary movements
--- NOTE | 2023-12-13 08:20 | W.PN.INTV ---
Today's Communication / Plan
Recommendations
Up OOB as tolerated
Pain control
Encourage incentive spirometer 10x/hr for at least 4 hrs a day
Outpatient follow-up with vascular surgery + neurology
Patient being prepared for discharge home. Assembler Molded Frames/Pulmonary service will now sign off. Please reconsult if there are any additional questions/concerns, or if patient's respiratory status deteriorates.
Assessment
-
Assessment: 78-year-old male former tobacco smoker (quit 1986) with a past medical history of hypertension, COPD and bilateral internal carotid artery stenosis was who presents with elective left carotid endarterectomy. He was recently
hospitalized from 12/03ue to 2 right-sided body involuntary movements. Brain MRI on 12/05/2023 showed left parietal lobe restricted diffusion suspicious for subacute infarct. LP on 12/06/2023 was noncontributory with negative
paraneoplastic antibodies, negative VDRL and negative oligoclonal bands. CTA head/neck on 12/04/2023 showed bilateral internal carotid artery stenosis with left-sided ICA of 70 - 75% diameter;. Vascular surgery saw the patient during this
hospitalization and diagnosed with severe left carotid artery stenosis with symptoms and revascularization was discussed. He was seen by neurology and was started on aspirin + statin as well as brivaracetam. He was discharged home on these new
medications and told to follow-up with neurology as well as vascular surgery. He is now here for left-sided carotid endarterectomy.. Left carotid endarterectomy with bovine pericardial patch angioplasty performed on 12/12/[address] Samuel. There
were no complications and he was transferred to the ICU postoperatively with critical care services consulted for additional management/recommendations
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
Impression:
#Symptomatic left critical carotid artery stenosis s/p left carotid endarterectomy with bovine pericardial patch angioplasty (POD #1)
#Recent subacute left parietal lobe CVA
#History of COPD , uses prn albuterol at home - not currently in an acute exacerbation
#History of BPH
#Former tobacco use disorder
#Hypertension
Plan:
Postoperative surgical intensive care unit monitoring
Supplemental oxygen as needed to maintain SpO2 >88-94%
prn nebulized bronchodilators
Incentive spirometry encouraged 10x per hour for at least 4 hrs a day
Aspiration precautions
Pain control
Neuro and vascular checks per protocol
Maintain MAP>65
Replete electrolytes with K>4, Mg>2
Maintain euglycemia with goal BG 140-180
Vascular surgery following-correspondence and operative notes reviewed
Transfuse if needed to keep Hb>7g/dL, and plt>50k (given post-operative status)
DVT prophylaxis
Early nutrition
Early mobilization
Patient being prepared for discharge home. He should follow-up with vascular surgery + neurology as an outpatient. Assembler Molded Frames/Pulmonary service will now sign off. Thank you for allowing us to be involved in the care of this patient. Please
reconsult if there are any additional questions/concerns, or if patient's respiratory status deteriorates.
Total time spent today was 40 minutes for this encounter. Time includes reviewing laboratory test/imaging results, reviewing pertinent medical records, obtaining and reviewing medical history, performing an appropriate exam, ordering medications,
tests and procedures. Time also includes documentation of this encounter, coordinating patient care and communicating with other healthcare professionals. Total time does not include separately billed tests performed on this date of service.
Subjective Dataa
Subjective Data
Date of Service:
Date of Service: December 13, 2023
Chief Complaint: Assembler Molded Frames Follow Up
Subjective:
Patient seen and evaluated this morning. Patient's daughter, Serina, at bedside � all questions were answered. Pt endorses intermittent mild right-sided headache this morning. Afebrile overnight. HR 84, BP 109/51, SpO2 98% on RA. He otherwise
denies CP, SOB, abdominal pain, nausea, vomiting, diarrhea, fevers or chills.
Review of Systems
General: Other (Negative unless mentioned above)
Objective Data
Data Reviewed
Vital Signs / I&O / Oxygen:
Vital Signs
Temp Pulse Resp BP Pulse Ox
97.8 F 61 10 136/60 98
12/13/23 07:40 12/13/23 06:30 12/13/23 06:30 12/12/23 20:00 12/13/23 07:40
Intake and Output
12/12/23 12/13/23 12/14/23
06:59 06:59 06:59
Intake Total 2560 / 2640 640 / 640
Output Total 2100 / 2100
Balance 460 / 540 640 / 640
SaO2 98
Nasal Cannula flow liters per 2
minute
Physical Exam
General: Respiratory Distress (Negative), Comfortable, Chills (Negative) and Sweats (Negative)
HEENT: Normocephalic and Anicteric
Cardiovascular: S1-S2, Murmur (ELO, grade II/) and Peripheral Edema (Negative)
Respiratory: Clear, Wheeze (Negative), Crackles (Negative), Rhonchi (Negative) and Non-Labored Respirations
GI: Soft, Non Distended, Non Tender and Normal Bowel Sounds
Neurology: AO x 3 and Tremors (Occasional involuntary movement of right lower extremity)
Skin: Warm, Dry, Cyanosis (Negative) and Jaundice (Negative)
Labs/Micro/Reports
Lab Data
12/13/23 03:16
12/13/23 03:16
Laboratory Results
12/12/23 12/13/23
09:48 03:16
PT 14.6 15.0 H
INR 1.15 1.19
APTT 32.2 35.3 H
[2023-12-13] MEDS: VITAMIN B-12 1000 MCG PO (08:52)
[2023-12-13] MEDS: ASPIR LOW (ENTERIC COATED) 81 MG PO (08:52)
[2023-12-13] MEDS: BRIVIACT 100 MG PO (08:52)
[2023-12-13 09:00] VITALS: BP 109/58
--- NOTE | 2023-12-13 09:03 | PTCARENOTE ---
Received pt laying in bed. C/O headache n the right side of his head. Dr. Samuel at the bedside when he reported that. Left hand #20g protective catheter with 0.9nss capped as ordered, right radial arterial line to be DC'd as ordered. Pt verbalizing
his need to use the BR. Neurological exam unremarkable. Unchanged right upper and lower extremity involuntary movements. He was informed of the plan of care to get oob slowly, eat BF in the chair then ambulate in the almonte. Saf environment
maintained. Will continue to monitor.
[2023-12-13 09:57] VITALS: BP 109/51
[2023-12-13 11:03] VITALS: BP 111/52
--- NOTE | 2023-12-13 11:06 | PTCARENOTE ---
No changes. Uneventful walk with RN monitored in the almonte. He tolerated it well. H/A resolved per pt at this time. Left neck incision NOAH & approximated.
--- NOTE | 2023-12-13 11:32 | CM ---
Addendum entered by Mary Alaniz RN 12/13/23 13:54:
Patient is medically ready for discharge. No needs noted.
PLAN: home no needs.
Original Note:
CM reviewed medical records. Patient stated that he lives with his daughter in a two story home. Patient confirmed that he currently does not have a PCP. Patient uses [facility] for medication services. CM will remain available as needed for discharge
planning needs.
[2023-12-13] MEDS: TYLENOL 650 MG PO (11:47)
--- NOTE | 2023-12-13 11:50 | PTCARENOTE ---
Pt stated his right sided headache is chronic. It is intermittent and he has been getting these for approximately 5 years.
--- NOTE | 2023-12-13 11:50 | PTCARENOTE ---
Daughter in the room. Provided information regarding incisional care, showering recommendations, and follow-up appointments. She is also aware that her father did not take his B6 vitamin this morning due to the amount of pilsl required to equal his
500mg dose. He verbalized that he will take them tonight.
--- NOTE | 2023-12-13 13:37 | W.PN.UPDATE ---
Update Note
Progress Note Update
Patient re-evaluated and reports tolerating ambulation of halls, no difficultly urinating, resolution of headache, and tolerating PO diet. Cleared for dc to home.
--- NOTE | 2023-12-13 13:38 | W.DS.TRANS ---
DC Summary - Information Architect
-
Discharge Instructions:
Discharge Diagnosis/Procedures Left carotid endarterectomy with bovine
pericardial patch angioplasty and intraoperative
EEG/SSEP monitoring.
Diet As tolerated
Activity No strenuous activity
Driving Restrictions Not until seen by your Dr
Bathing Restrictions OK to Shower
Instructions:
Stand-Alone Forms: DC Instr - Vascular OR
Changes to Home Medications: No
Discharge Medications:
DC Medications w/original date entered in [facility]
aspirin 81 mg tablet,delayed release 81 mg PO DAILY 30 days #30 tabs 12/07/23
atorvastatin 80 mg tablet 80 mg PO QPM 30 days #30 tabs 12/07/23
brivaracetam 50 mg tablet (Briviact) 100 mg (2 x 50 mg) PO BID #60 tabs 12/07/23
mecobalamin (vitamin B12) 1,000 mcg chewable tablet (B12 Active) 1,000 mcg PO DAILY Supplement 12/09/23
pyridoxine (vitamin B6) 500 mg tablet 500 mg PO DAILY Supplement 12/09/23
Home Medication Changes
Pending Results: No
--- NOTE | 2023-12-13 13:54 | PTCARENOTE ---
Pt for discharge, daughter present at bedside. Reviewed s/s of stroke, pt receptive and demonstrated verbal understanding. Stroke packet given to pt.
--- NOTE | 2023-12-13 14:12 | W.DCSUMMARY ---
Discharge Summary
Discharge Data
Date of Admission: 12/12/23
Date of Discharge: 12/13/23
-
Pending Results: No
Hospital Course
Attending: Sung Samuel MD
Consultants: Pulmonary Medicine
Allergies: Erythromycin, house dust, pollen extracts, sulfa
Procedure: Left carotid endarterectomy with bovine pericardial patch angioplasty and intraoperative EEG/SSEP monitoring.
History of present illness: The patient is an 78 -year-old male with multiple medical conditions including: carotid stenosis, stroke, COPD, hypertension, and BPH. Patient presented on 12/12/2023 for scheduled procedure with Dr. Sung Samuel.
Hospital Course: Briefly, the patient underwent scheduled carotid endarterectomy without complications, and recovered in PACU. Following recovery phase one and two patient was transferred to intensive care unit per protocol for continued hemodynamic
monitoring. Copy Cutter consulted to aid in medical management from a critical care perspective. POD #1 (12/13/23) Patient neurologically intact, face symmetrical, and tolerating PO diet. Left neck surgical incision clean, dry, and intact with suture
line well approximated and soft. No evidence of hematoma. Arterial line and IV fluids discontinued. Patient able to ambulate without difficulty or incident. Patient stable for discharge to home.
Prescriptions and follow up appointment are included in the DC summary cia agent note. All instructions were given to the patient in both written and verbal form and the patient expressed understanding.
Discharge Plan
-
Discharge Diagnosis/Procedures: Left carotid endarterectomy with bovine pericardial patch angioplasty and intraoperative EEG/SSEP monitoring.
Condition: Good
Diet: As tolerated
Activity: No strenuous activity
Driving Restrictions: Not until seen by your Dr
Bathing Restrictions: OK to Shower
Activity Restrictions/Additional Instructions:
If you experience severe constant headache, change in vision, weakness to the arm or leg, or any stroke-like symptoms call 911
If you experience redness, swelling, bleeding, drainage from the neck site please call the office immediately
Stand Alone Forms: DC Instr - Vascular OR
Referrals:
Fauzia Navarro PA-C [Specified Professional Personl] - 12/27/23 9:30 am (Vascular follow up)
NONE,* [Family Provider] -
Prescriptions:
Continued
aspirin 81 mg Tablet,Delayed Release (Dr/Ec)
81 mg PO DAILY 30 Days Qty: 30 0RF
Briviact 50 mg Tablet
100 mg PO BID Qty: 60 0RF
atorvastatin 80 mg Tablet
80 mg PO QPM 30 Days Qty: 30 0RF
pyridoxine (vitamin B6) 500 mg Tablet
500 mg PO DAILY
mecobalamin (vitamin B12) [B12 Active] 1,000 mcg Tablet,Chewable
1,000 mcg PO DAILY
Discharge Orders:
Discharge Patient (As Directed); Ordered 12/13/23
Ordered By: Josie Brown
Discharge Date and Time
Print Language: SOMALI
--- NOTE | 2023-12-13 14:31 | PTCARENOTE ---
Pt discharge. All IV's and TELE removed. Pt escorted out via wheelchair to daughters car.
== END 2023-12-13 14:15 | disposition home or self-care (01) | DRG 39 ==
LOC: ICU 06:12
PROVIDERS: Nurse Practitioner Acute Care; ADMITTING PHYSICIAN Surgery Vascular Surgery; CONSULT PHYSICIAN Internal Medicine Critical Care Medicine
PROC: 03CL0ZZ Extirpation of Matter from Left Internal Carotid Artery, Open Approach (ICD-10-PCS; 2023-12-12)
PROC: 03UL0KZ Supplement Left Internal Carotid Artery with Nonautologous Tissue Substitute, Open Approach (ICD-10-PCS; 2023-12-12)
DX: I65.23 Occlusion and stenosis of bilateral carotid arteries (principal); I10 Essential (primary) hypertension; J44.9 Chronic obstructive pulmonary disease, unspecified; N40.0 Benign prostatic hyperplasia without lower urinary tract symptoms; Z86.73 Personal history of transient ischemic attack (TIA), and cerebral infarction without residual deficits; Z87.891 Personal history of nicotine dependence; Z79.82 Long term (current) use of aspirin; Z79.899 Other long term (current) drug therapy; Z88.1 Allergy status to other antibiotic agents; Z88.2 Allergy status to sulfonamides
CPT/HCPCS: 88304; 88311; 35301; 71045; 80048; 83735; 84100; 85027; 85610; 85730; 86850; 86900; 86901; 93005; 95938; 95941; 95955

== ENCOUNTER 2023-12-19 08:17 | Outpatient (RCR) | payer OTHER, SELFPAY | END 2023-12-19 23:59 | disposition home or self-care (01) | LOC: RPT 08:17 | PROVIDERS: ATTENDING PHYSICIAN Psychiatry & Neurology Neurology; FAMILY PHYSICIAN Family Medicine | DX: R26.89 Other abnormalities of gait and mobility (principal) | CPT/HCPCS: 97110; 97112; 97163; 97167 ==

== ENCOUNTER → 2024-01-03 14:51 | Outpatient (REF) | payer OTHER, SELFPAY | LOC: HWRCS 14:51 | DX: I44.7 Left bundle-branch block, unspecified (principal) | CPT/HCPCS: 93306 ==

== ENCOUNTER 2024-01-23 16:16 | Outpatient (RCR) | payer OTHER, SELFPAY | END 2024-01-23 23:59 | disposition home or self-care (01) | LOC: RPT 16:16 | PROVIDERS: ATTENDING PHYSICIAN Psychiatry & Neurology Neurology; FAMILY PHYSICIAN Family Medicine | DX: I69.398 Other sequelae of cerebral infarction (principal); R26.89 Other abnormalities of gait and mobility; Z73.6 Limitation of activities due to disability | CPT/HCPCS: 97110; 97112; 97116; 97140; 97530 ==

== ENCOUNTER → 2024-01-27 14:21 | Outpatient (REF) | payer OTHER, SELFPAY | LOC: RAD 14:21 | PROVIDERS: ATTENDING PHYSICIAN Physician Assistant | DX: I65.22 Occlusion and stenosis of left carotid artery (principal) | CPT/HCPCS: 93880 ==

== ENCOUNTER 2024-02-17 15:12 | Outpatient (RCR) | payer OTHER, SELFPAY | END 2024-02-20 07:33 | disposition home or self-care (01) | LOC: RPT 15:12 | PROVIDERS: ATTENDING PHYSICIAN Psychiatry & Neurology Neurology; FAMILY PHYSICIAN Family Medicine | DX: I69.398 Other sequelae of cerebral infarction (principal); R26.89 Other abnormalities of gait and mobility; R25.8 Other abnormal involuntary movements; Z73.6 Limitation of activities due to disability | CPT/HCPCS: 97110; 97112; 97116; 97140; 97530 ==

== ENCOUNTER → 2024-08-23 15:00 | Outpatient (REF) | payer OTHER, SELFPAY | LOC: DHVS 15:00 | PROVIDERS: ATTENDING PHYSICIAN Surgery Vascular Surgery; FAMILY PHYSICIAN Family Medicine | DX: I65.22 Occlusion and stenosis of left carotid artery (principal) | CPT/HCPCS: 93880 ==

== ENCOUNTER → 2024-08-31 15:08 | Outpatient (REF) | payer OTHER, SELFPAY | LOC: RAD 15:08 | PROVIDERS: ATTENDING PHYSICIAN Surgery Vascular Surgery; FAMILY PHYSICIAN Family Medicine | DX: I65.22 Occlusion and stenosis of left carotid artery (principal) | CPT/HCPCS: 70496; 70498; Q9967 ==

== ENCOUNTER → 2024-09-05 14:50 | Outpatient (REF) | payer OTHER, SELFPAY | LOC: RAD 14:50 | PROVIDERS: ATTENDING PHYSICIAN Surgery Vascular Surgery; FAMILY PHYSICIAN Family Medicine | DX: I73.9 Peripheral vascular disease, unspecified (principal) | CPT/HCPCS: 93922; 93925 ==

== ENCOUNTER 2024-09-27 09:00 | Inpatient (IN) | payer OTHER, SELFPAY ==
--- NOTE | 2024-09-20 13:10 | PTCARENOTE ---
Cilacar medication reviewed with Dr Caban, patient is able to take med prior to surgery.
[2024-09-24 09:50] VITALS: BMI 21.8
[2024-09-24 10:17] LABS: % Basophils 1.1 % (0-2); % Immature Granulocytes 0.4 % (0-0.5); % Lymphocytes 15.9 % (20.5-51.1); % Monocytes 9.2 % (1.7-9.3); % Neutrophils 65.4 % (42.2-75.2); Absolute Basophils 0.1 10^3/uL (0-0.2); Absolute Eosinophils 0.6 10^3/uL (0-0.7); Absolute Lymphocytes 1.2 10^3/uL (1.2-3.4); Absolute Monocytes 0.7 10^3/uL (0.1-0.6); Absolute Neutrophils 4.8 10^3/uL (1.4-6.5); Hematocrit 41.5 % (39.0-52.0); Hemoglobin 14.1 g/dL (13.0-18.0); Mean Corpuscular Hgb 30.1 pg (27.0-31.0); Mean Corpuscular Volume 88.5 fL (80.0-94.0); Mean Platelet Volume 10.6 fL (7.4-10.4); Nucleated Red Blood Cells % 0 % (-); Platelet Count 194 10^3/uL (130-400); Red Blood Cell Count 4.69 10^6/uL (4.70-6.10); Red Cell Dist. Width 13.9 % (11.5-14.5); White Blood Cell Count 7.4 10^3/uL (4.8-10.8)
[2024-09-24 10:35] LABS: PT 13.5 Sec (11.4-14.6)
[2024-09-24 10:50] LABS: Blood Urea Nitrogen 17 mg/dl (9-20); Calcium 9.5 mg/dl (8.4-10.2); Carbon Dioxide 27 mmol/L (22-30); Chloride 105 mmol/L (98-107); Estimated Creatinine Clearance 42 ml/min; Glucose 98 mg/dl (70-99); Potassium 4.4 mmol/L (3.5-5.1); Sodium 140 mmol/L (135-145); eGFR 55.88
[2024-09-27] VITALS (18 sets, daily range): BP systolic 98–174; BP diastolic 48–73; BMI 19.7
[2024-09-27] MEDS: PERIDEX 0.12% ORAL RINSE 15 ML PO (09:34)
[2024-09-27] MEDS: BACTROBAN NASAL 1 GRAM NASAL (09:34)
[2024-09-27] MEDS: NSS 500 IV (09:35)
--- NOTE | 2024-09-27 12:01 | W.SUR.POST ---
Surgical Immediate Post Op
Note
Pre Op Diagnosis: Carotid stenosis
Post Op Diagnosis: Same
Procedure Performed: Right carotid endarterectomy with bovine pericardial patch angioplasty and EEG monitoring
Primary Surgeon: Dr. Samuel
Assist: Kevin MAYS
Anesthesia: General
Estimated Blood Loss: 10cc
Fluids: See anesthesia flowsheet
Drains/Shunts: None
Specimens/Cultures: Carotid plaque
Doppler/Duplex/Angio (Y/N): Yes
Complications: None
Operative Findings: Woke from anesthesia moving all extremities
--- NOTE | 2024-09-27 12:33 | OR.RPT ---
Operative Report
Operative Report
PROCEDURE DATE: 09/27/2024
Preoperative diagnosis: Critical right carotid stenosis, asymptomatic.
Postoperative diagnosis: Same
Procedure: Right carotid endarterectomy with bovine pericardial patch angioplasty and intraoperative EEG/SSEP monitoring.
Surgeon: Jimmie
Optical Laboratory Manager: PRANEETH Brown, required for all aspects of procedure including assistance with traction/countertraction, following of suture line, assistance with closure.
Complications: None
Anesthesia: General
Indications for procedure:
Severe right carotid stenosis, pinpoint like stenosis with severe soft plaque. Prior left carotid endarterectomy for similar findings in the left carotid that had resulted in neurologic event/TIA stroke. Risk/benefits/alternatives of right carotid
endarterectomy fully discussed with the patient. He understood and wished to proceed.
Description of procedure:
Patient was identified brought to the operating room placed on the table in supine position. After the adequate administration of anesthesia and perioperative antibiotics he was prepped and draped in the standard surgical fashion. A standard
preoperative timeout was undertaken and everybody was in agreement the plan. A standard longitudinal incision was made in the right neck that was carried through the skin subcutaneous tissue. Using the electrocautery dissection was carried through
the platysma muscle layer and then alongside the anterior medial border of the sternocleidomastoid muscle. Then using a combination of sharp dissection with the Metzenbaum scissors and electrocautery I dissected along the anterior medial border of
the internal jugular vein. A somewhat small common facial vein branch was ligated between silk ties and then divided. I then deepened my retraction. The common carotid artery was identified and carefully dissected away from the surrounding
structures take great care to avoid any injury to the structures. A vessel loop was passed around it which was double looped, but not yet tightened. Note the vagus nerve was noted on the anterior lateral surface of the carotid and was carefully
dissected off without grasping the nerve but rather the soft tissues around it. It was as such protected from harm's way. I then continued my dissection up the common carotid artery to the bulb staying only on the anterior surface of the carotid
artery. Then I carried the dissection up to the internal carotid artery and then to the distal internal carotid artery. I identified where it was soft and carefully circumferentially dissected the internal carotid artery with minimal mobilization
and passed a vessel loop around it. Note there was a larger vein branch crossing here that was ligated between silk ties and divided. Note the hypoglossal nerve was not visualized and felt to be further cephalad. The patient was given an
appropriate dose of heparin 6500 units. Next I dissected the anterior surface of the external carotid artery and superior thyroid branches. These were then carefully circumferentially dissected with minimal mobilization and vessel loops passed
around these which were double looped but not yet tightened. After 3 minutes of heparin circulation time and confirmation of optimization of the blood pressure with my anesthesiology colleagues, I clamped the distal internal carotid artery where it
was soft. There was no immediate EEG or SSEP changes. After 1 minute of test clamp time there was no changes noted. Therefore at this point, the vessel loops on the external carotid artery and superior thyroid branches were tightened and the
common carotid artery was clamped where it was soft proximally. An arteriotomy was made on the common carotid artery with an 11 blade and extended using a [place] scissor. I extended the arteriotomy onto the mid to distal internal carotid artery.
There was hemorrhagic/soft plaque that resulted in severe stenosis in the proximal internal carotid artery. Very concerning type appearing plaque. A [place] was then used to endarterectomized the plaque. An endarterectomy plane was created, and the
plaque was then endarterectomized. Distally I feathered the plaque out to a nice clean endpoint in the distal internal carotid artery. Next I endarterectomized the intima back to normal intima in the common carotid artery, and the intima was cut
flush there. I then grasped the plaque and everted plaque out of the origin of the external carotid artery. The plaque was then sent off for specimen. The origin of the external carotid artery was carefully visualized and any fine debris were
removed with fine forceps. Proximal and distal endpoints were then carefully inspected. Any fine debris was removed with fine forceps, and the intima was noted to be nicely adherent proximally distally. Next any fine debris were removed
throughout the endarterectomy bed with fine forceps. I then flushed heparinized saline. I was very satisfied. Then, I used a bovine pericardial patch to sew a patch angioplasty with a running 6-0 Prolene suture. Prior to completing and tying
down my suture line, I backbled sequentially each branch and reclamped each branch prior to unclamping the next branch. I then irrigated with heparinized saline. Then I completed and tied down my suture line. We then restored flow in the common
carotid and external carotid arteries. Finally, we released flow in the internal carotid artery. There was excellent pulsatile flow in all 3 vessels. There was an excellent Doppler signal in the internal carotid artery distal to the patch with a
good normal low resistance Doppler signal. There was a good Doppler signal in the external carotid artery as well. Protamine was given to reverse the heparin. Hemostasis was completely achieved. We then irrigated and confirmed full hemostasis.
[place] then closed in layers with 2-0 Vicryl layer to reapproximate the sternocleidomastoid muscle, followed by 3-0 Vicryl platysma muscle running layer, followed by 4-0 Monocryl subcuticular stitch. Dermabond was applied. The patient tolerated
procedure well. He awoke moving all extremities to command with tongue in the midline. All sponge, needle, instrument counts were correct at the end of the case. Patient was transported to recovery room in stable condition.
[2024-09-27 13:14] LABS: Hematocrit 34.6 % (39.0-52.0); Hemoglobin 11.9 g/dL (13.0-18.0); Mean Corp Hgb Conc. 34.4 g/dL (33.0-37.0); Mean Corpuscular Hgb 30.2 pg (27.0-31.0); Mean Corpuscular Volume 87.8 fL (80.0-94.0); Mean Platelet Volume 10.2 fL (7.4-10.4); Platelet Count 149 10^3/uL (130-400); Red Blood Cell Count 3.94 10^6/uL (4.70-6.10); Red Cell Dist. Width 13.6 % (11.5-14.5); White Blood Cell Count 7.8 10^3/uL (4.8-10.8)
[2024-09-27 13:20] LABS: INR 1.14; PT 15.1 Sec (11.4-14.6)
[2024-09-27 13:21] LABS: APTT 31.7 Sec (23.4-35.0)
[2024-09-27 13:32] LABS: Blood Urea Nitrogen 14 mg/dl (9-20); Calcium 8.2 mg/dl (8.4-10.2); Carbon Dioxide 22 mmol/L (22-30); Chloride 111 mmol/L (98-107); Estimated Creatinine Clearance 50 ml/min; Glucose 115 mg/dl (70-99); Potassium 3.8 mmol/L (3.5-5.1); Sodium 139 mmol/L (135-145); eGFR > 60.00
[2024-09-27] MEDS: NSS 1000 IV (14:04)
--- NOTE | 2024-09-27 14:10 | PTCARENOTE ---
Patient received from PACU via bed accompanied by RN x 2. Admitted to ICU bed 3358. Right [place] leveled and zeroed. Left arm BP cuff reads approx 10-30mmHg less than [place]. Neuro checks per order, neurologically intact. Slightly [place]. See RN
assessment charted on worklist flowsheet. SB-SR on CM with 1st degree AVB and BBB. BBS clear but diminished t/o. No edema. C/o right sided neck pain, Roxicodone given po prn, see MAR.Right neck incision with dermabond CDI, approximated. Ice pack to
right neck every 2 hours as needed. Bed in low and locked position, oriented to room, call jaramillo within reach.
[2024-09-27] MEDS: ROXICODONE 5 MG PO ×2 (14:11→20:41)
--- NOTE | 2024-09-27 15:15 | CON.INTV ---
Consultation
Consultation Request
Date/Time Consultation Requested: 09/27/2024
Date/Time Consultation Performed: 09/27/2024
Requesting Provider: Sung Samuel
Performing Provider: Chanda Burnette
Reason for Consultation: CEA
Medical History
-
Chief Complaint: h/o stroke
History of Present Illness:
Patient is a very pleasant 79-year-old gentleman with known history of stroke and left carotid endarterectomy who follows up with vascular surgery as outpatient for carotid artery disease. Recent imaging was suggestive of progressive right-sided
carotid stenosis and he was electively admitted to the hospital on 09/27 for right carotid endarterectomy. Postprocedure, patient was admitted to the ICU and footwear sales associate consultation was requested for further input.
PMHx: Hypertension, history of COPD, BPH, bilateral arm fracture, former tobacco use, bilateral internal carotid artery stenosis, history of CVA (left parietal lobe)
PSHx: ORIF bilateral upper extremity
Past Medical History
Past Medical History: Other (Above as per HPI)
Past Surgical History: Other (Above as per HPI)
Social History
Tobacco: Former Smoker (Quit in 1986, prior to that was 1.5-2 packs/day x 20 years))
Alcohol: None
Drug: None
Living: With Family
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
Family History
Family History: Other (Brother: Arthritis; unknown family history involving mother and father as they when the patient was very young (6 years old))
Allergies / Home Medications
Allergies
Allergy/AdvReac Type Severity Reaction Status Date / Time
erythromycin base Allergy Unknown Verified 09/27/24 09:08
house dust Allergy environmental Verified 09/27/24 09:08
allergies
pollen extracts Allergy seasonal Verified 09/27/24 09:08
allergies
Sulfa (Sulfonamide Allergy Unknown Verified 09/27/24 09:08
Antibiotics)
Home Medications
�Medication �Instructions �Recorded �Confirmed �Last Taken �Type
aspirin 81 mg tablet,delayed 81 mg PO DAILY 30 days #30 tabs 12/07/23 09/27/24 09/27/24 06:00 Rx
release
mecobalamin (vitamin B12) 1,000 1,000 mcg PO DAILY Supplement 12/09/23 09/27/24 09/19/24 08:00 History
mcg chewable tablet (B12 Active)
pyridoxine (vitamin B6) 500 mg 500 mg PO DAILY Supplement 12/09/23 09/27/24 09/19/24 08:00 History
tablet
Cilacar 5 mg PO BID 09/20/24 09/27/24 09/26/24 19:00 History
Montair 5 mg PO PRN PRN allergies 09/20/24 09/27/24 Unknown History
atorvastatin 40 mg tablet 40 mg PO HS 09/20/24 09/27/24 09/26/24 19:00 History
Review of Systems
-
Hematologic/Lymphatic: Other (Except for mild sore throat, all 14 systems reviewed and negative except as stated above in the history of present illness.)
Vitals / Labs / Diagnostic Testing
Vital Signs
Temp Pulse Resp BP Pulse Ox
97.6 F 56 11 105/50 98
09/27/24 12:52 09/27/24 13:45 09/27/24 13:45 09/27/24 13:45 09/27/24 13:45
Lab Data
09/27/24 13:02
09/27/24 13:02
Laboratory Results
09/27/24
13:01
PT 15.1 H
INR 1.14
APTT 31.7
Diagnostic Testing:
Physical Exam
-
HEENT: Normocephalic
Cardiovascular: S1/S2 and Peripheral Edema (No pedal edema)
Respiratory: Clear and Non-Labored Respirations
GI: Soft
Neurology: Awake, Alert and Oriented
Skin: Warm
General: Comfortable
Assessment
-
Patient is s/p Right carotid endarterectomy by vascular surgery service, POD #0
Continue observation following procedure
Follow neurovascular checks per protocol
ASA, amlodipine, atorvastatin.
Follow BP monitoring and parameters as set by primary team
No history of coronary artery disease
Monitor on telemetry
Pain control per protocol
RASS goal 0
Known history of mild emphysema, asymptomatic. Patient not on any inhaler therapy.
CXR reviewed indicating no acute disease
No prior PFTs for review
Encouraged IS
Diet advancement per protocol
Aspiration precautions
GI prophylaxis, not indicated
Creat at baseline, follow UO
Critical I/Os
Void trials
Replete electrolytes as needed
No signs/symptoms suspicious for infectious etiology at this time
Will observe off antibiotics for now
Follow temperatures/CBC
Hb and platelets postoperatively stable
DVT prophylaxis: Subcu heparin
Encouraged OOB/PT/OT/ambulation once cleared by surgical team
Other medical diagnoses:
#Symptomatic left critical carotid artery stenosis s/p left carotid endarterectomy with bovine pericardial patch angioplasty 11/2023
#Subacute left parietal lobe CVA, 11/2023
#History of COPD/Emphysema. No symptoms. Not on any inhalers. Offered patient additional workup like pulmonary function testing. Patient does not feel any symptoms from emphysema and does not want to pursue any workup or treatment at this point.
#History of BPH
#Former tobacco use disorder
#Hypertension
Critical Care time 63 mins -- The patient is admitted for acute critical illness for the treatment of vital organ failure and/or prevention of further life-threatening conditions. Total care includes time spent in review of history, physical exam,
medications, hemodynamic/ventilator parameters, laboratory data, imaging and discussion with house staff, pharmacy, respiratory therapy, senior it business analyst, and nursing.
Data:
CTA head/Neck 08/2024: 1. Soft plaque within the right carotid bulb, measurements consistent with approximately 85% stenosis. This correlates with findings from recent prior carotid ultrasound.
2. Left carotid endarterectomy is widely patent, without significant stenosis.
3. Left vertebral artery is diminutive in size throughout its length. The very distal V3 demonstrates focal calcified plaque, and likely occlusion of the distal portion of the V3 segment. Basilar artery is perfused via the dominant right vertebral
artery. Symmetric perfusion within the territory of both posterior cerebral arteries. origin of the right posterior cerebral artery.
4. Moderate centrilobular emphysema. Biapical scarring.
5. Paranasal sinus change.
CXR 09/2024: Unremarkable
ECHO 12/2023: Normal left ventricular size, wall thickness and systolic function. No regional
wall motion abnormalities are seen. LV ejection fraction is 50-55% by Ramires's
method of discs. Abnormal (paradoxical) septal motion consistent with left
bundle branch block. Normal diastolic function.
Normal right ventricular size and function.
No significant valvular pathology
CT Chest 11/2021: 1. No evidence of pulmonary embolism or thoracic aortic dissection.
2. Mild centrilobular emphysema. No evidence of lobar airspace consolidation, pleural effusion, or pneumothorax.
3. Linear opacity within each lung apex, most suggestive of scarring. Comparison with prior studies may be helpful if available.
4. Mild coronary arterial calcification. Please correlate with symptoms of and risk factors for coronary artery disease, with further workup as clinically appropriate.
5. Small paraseptal blebs along the mediastinal surface of each lung, without pneumothorax.
--- NOTE | 2024-09-27 16:30 | PTCARENOTE ---
Essentially no change in patient's physical assessment. Pain is now well controlled, pain only with swallowing. VSS. Voids per urinal without difficulty. [place] leveled and zeroed.
--- NOTE | 2024-09-27 19:20 | PTCARENOTE ---
Report given verbally to Roney le RN. Questions answered.
--- NOTE | 2024-09-27 20:00 | PTCARENOTE ---
Received report from ray RN, assumed care of patient at 1900. Patient on bedrest s/p R CEA. Ox3, SR/SB on monitor with BBB, on RA lungs diminished with shallow respirations, abdomen round, voiding clear yellow urine into urinal. Right radial
arterial line in place, zeroed at this time, waveform WNL. A line and cuff pressures not correlating, 10-30mmHg off, WOOD LATHER made aware. Right neck incision approximated with surgical glue present, C/D/I, soft to touch. NSS infusing via L hand PIV, L
AC PIV patent and in place. Patient remains on Q1hr neurochecks, see worklist for documentation. Medicated for pain, see MAR. Call jaramillo within reach, VSS, care ongoing.
[2024-09-27] MEDS: LIPITOR 40 MG PO (20:41)
[2024-09-27] MEDS: CARDENE 200 IV (22:50)
--- NOTE | 2024-09-28 | PTCARENOTE ---
No changes to physical assessment. Patient systolic ABP reading 165-180. Patient asymptomatic, R CEA incision intact, neurochecks as documented. Cardene gtt initiated as per order, see MAR and worklist for titration. Vascular supervisor show operations made aware via
TT. ABP systolic 120-130's with infusion running. Care ongoing.
[2024-09-28 04:00] VITALS: BP 108/54
[2024-09-28] MEDS: NSS 1000 IV (04:13)
[2024-09-28 04:39] LABS: Hematocrit 32.7 % (39.0-52.0); Hemoglobin 11.3 g/dL (13.0-18.0); Mean Corp Hgb Conc. 34.6 g/dL (33.0-37.0); Mean Corpuscular Hgb 30.2 pg (27.0-31.0); Mean Corpuscular Volume 87.4 fL (80.0-94.0); Mean Platelet Volume 10.6 fL (7.4-10.4); Platelet Count 144 10^3/uL (130-400); Red Blood Cell Count 3.74 10^6/uL (4.70-6.10); Red Cell Dist. Width 13.8 % (11.5-14.5); White Blood Cell Count 6.3 10^3/uL (4.8-10.8)
[2024-09-28 04:48] LABS: INR 1.11; PT 14.8 Sec (11.4-14.6)
[2024-09-28 04:49] LABS: APTT 32.5 Sec (23.4-35.0)
[2024-09-28 05:02] LABS: Blood Urea Nitrogen 13 mg/dl (9-20); Calcium 8.3 mg/dl (8.4-10.2); Carbon Dioxide 23 mmol/L (22-30); Chloride 113 mmol/L (98-107); Estimated Creatinine Clearance 50 ml/min; Glucose 90 mg/dl (70-99); Sodium 139 mmol/L (135-145); eGFR > 60.00
[2024-09-28] MEDS: NORVASC 2.5 MG PO (07:49)
[2024-09-28] MEDS: HEPARIN 5000 UNITS SC (07:49)
[2024-09-28] MEDS: ASPIR LOW (ENTERIC COATED) 81 MG PO (07:49)
--- NOTE | 2024-09-28 08:31 | W.PN.VS ---
Addendum entered and electronically signed by Sung Samuel MD 09/28/24 08:55:
Seen and examined with PRANEETH Brown and PRANEETH Jiang. Agree with findings as noted below. Patient without complaints. Last night he notes he had some pain with chewing, but no difficulty chewing or swallowing. Notes no current pain. Right neck incision
is clean dry and intact. No hematoma. Neurologically no focal deficits. Moves all extremities well. Tongue midline. Plan/as discussed and noted below.
Original Note:
Today's Communication / Plan
-
Seen and assessed with Dr Samuel
Assessment/Plan
-
POD 1 Right carotid endarterectomy with bovine pericardial patch angioplasty and intraoperative EEG/SSEP monitoring.
Plan:
-DC becky
-DC IVF
-Increase diet
-PO meds
-OOB/ambulate
-Likely DC later today
Subjective Data
-
Date of Service: September 28, 2024
Pt seen at bedside this am with Dr Samuel. Pt offers no complaints at this time. No events overnight. Cardene gtt off at this time.
Objective Data
-
Vital Signs
Temp Pulse Resp BP Pulse Ox
98.3 F 79 15 108/54 95
09/28/24 07:11 09/28/24 06:00 09/28/24 06:00 09/28/24 04:00 09/28/24 06:00
Intake and Output
09/27/24 09/28/24 09/29/24
06:59 06:59 06:59
Intake Total 2485.0 / 2485.0
Output Total 1650 / 1650
Balance 835.0 / 835.0
Intake:
Oral fluids 960 / 960
IV fluids (Total) 1525.0 / 1525.0
Normosol 100 / 100
Nss 1,000 ml @ 80 mls/hr IV . 1350 / 1350
[id number] DEISY Rx#:[id number]
cardene 75.0 / 75.0
Output:
Urine, Voided 1649 / 1649
Lab Results
09/28/24 04:23
09/28/24 04:23
Calcium 8.3 mg/dl (8.4-10.2) L 09/28/24 04:23
Magnesium 2.0 mg/dl (1.6-2.3) 09/28/24 04:23
Physical Exam
-
AAOx3
No tachypnea
No tachycardia
Abd soft
neck site soft, flat, no drainage noted
moves all extremities to command
tongue midline
--- NOTE | 2024-09-28 09:45 | PTCARENOTE ---
Received pt awake and alert.Speech is appropriate.No dysarthria noted.No drift/droop noted.Gait is steady.SR with BBB noted.A Line discontinued as ordered.POX 97% on RA.Decreased breath sounds bibasilar.Appetite excellent.Voiding yellow urine.Right
neck incision is approximated with surgical glue. No drainage noted.Plan of care discussed.
--- NOTE | 2024-09-28 10:51 | W.PN.INTV ---
Today's Communication / Plan
Recommendations
- Activity as tolerated
- Patient stable to transfer out of ICU, clinical nurse reviewer service will sign off. Please call as needed
Assessment
-
Patient is s/p Right carotid endarterectomy by vascular surgery service, POD #1
Continue observation following procedure
Follow neurovascular checks per protocol
ASA, amlodipine, atorvastatin.
Follow BP monitoring and parameters as set by primary team
No history of coronary artery disease
Monitor on telemetry
Pain control per protocol
RASS goal 0
Known history of mild emphysema, asymptomatic. Patient not on any inhaler therapy.
CXR reviewed indicating no acute disease
No prior PFTs for review
Encouraged IS
Diet advancement per protocol
Aspiration precautions
GI prophylaxis, not indicated
Creat at baseline, follow UO
Critical I/Os
Void trials
Replete electrolytes as needed
No signs/symptoms suspicious for infectious etiology at this time
Will observe off antibiotics for now
Follow temperatures/CBC
Hb and platelets postoperatively stable
DVT prophylaxis: Subcu heparin
Encouraged OOB/PT/OT/ambulation once cleared by surgical team
Other medical diagnoses:
#Symptomatic left critical carotid artery stenosis s/p left carotid endarterectomy with bovine pericardial patch angioplasty 11/2023
#Subacute left parietal lobe CVA, 11/2023
#History of COPD/Emphysema. No symptoms. Not on any inhalers. Offered patient additional workup like pulmonary function testing. Patient does not feel any symptoms from emphysema and does not want to pursue any workup or treatment at this point.
#History of BPH
#Former tobacco use disorder
#Hypertension
Critical Care time 43 mins -- The patient is admitted for acute critical illness for the treatment of vital organ failure and/or prevention of further life-threatening conditions. Total care includes time spent in review of history, physical exam,
medications, hemodynamic/ventilator parameters, laboratory data, imaging and discussion with house staff, pharmacy, respiratory therapy, employment appeals examiner, and nursing.
Data:
CTA head/Neck 08/2024: 1. Soft plaque within the right carotid bulb, measurements consistent with approximately 85% stenosis. This correlates with findings from recent prior carotid ultrasound.
2. Left carotid endarterectomy is widely patent, without significant stenosis.
3. Left vertebral artery is diminutive in size throughout its length. The very distal V3 demonstrates focal calcified plaque, and likely occlusion of the distal portion of the V3 segment. Basilar artery is perfused via the dominant right vertebral
artery. Symmetric perfusion within the territory of both posterior cerebral arteries. origin of the right posterior cerebral artery.
4. Moderate centrilobular emphysema. Biapical scarring.
5. Paranasal sinus change.
CXR 09/2024: Unremarkable
ECHO 12/2023: Normal left ventricular size, wall thickness and systolic function. No regional
wall motion abnormalities are seen. LV ejection fraction is 50-55% by Ramires's
method of discs. Abnormal (paradoxical) septal motion consistent with left
bundle branch block. Normal diastolic function.
Normal right ventricular size and function.
No significant valvular pathology
CT Chest 11/2021: 1. No evidence of pulmonary embolism or thoracic aortic dissection.
2. Mild centrilobular emphysema. No evidence of lobar airspace consolidation, pleural effusion, or pneumothorax.
3. Linear opacity within each lung apex, most suggestive of scarring. Comparison with prior studies may be helpful if available.
4. Mild coronary arterial calcification. Please correlate with symptoms of and risk factors for coronary artery disease, with further workup as clinically appropriate.
5. Small paraseptal blebs along the mediastinal surface of each lung, without pneumothorax.
Subjective Dataa
Subjective Data
Date of Service:
Date of Service: September 28, 2024
Subjective:
Patient comfortably sitting in bed, in no acute distress.
Review of Systems
Genitourinary: Other (All 14 systems reviewed and negative except as stated above in the history of present illness.)
Objective Data
Data Reviewed
Vital Signs / I&O / Oxygen:
Vital Signs
Temp Pulse Resp BP Pulse Ox
98.3 F 77 20 108/54 97
09/28/24 07:11 09/28/24 09:00 09/28/24 09:00 09/28/24 04:00 09/28/24 08:00
Intake and Output
09/27/24 09/28/24 09/29/24
06:59 06:59 06:59
Intake Total 2485.0 / 2565.0 160 / 160
Output Total 1650 / 1650
Balance 835.0 / 915.0 160 / 160
SaO2 97
Physical Exam
General: Comfortable
HEENT: Normocephalic
Cardiovascular: S1-S2
Respiratory: Clear and Non-Labored Respirations
GI: Soft and Non Distended
Neurology: Awake and Alert
Skin: Warm
Labs/Micro/Reports
Lab Data
09/28/24 04:23
09/28/24 04:23
Laboratory Results
09/27/24 09/28/24
13:01 04:23
PT 15.1 H 14.8 H
INR 1.14 1.11
APTT 31.7 32.5
--- NOTE | 2024-09-28 12:14 | PTCARENOTE ---
Pt assessed.No change in assessment noted.Ambulated loop in ICU.Gait is steady.
--- NOTE | 2024-09-28 12:28 | CM ---
Initial assessment completed with patient who lives with his , daughter, S-I-L and grandson in a 2 story house plus basement with 2 steps to enter, B/B on 2nd floor, 1/2 bath on 1st. [employer] patient was independent in ADL's and ambulation. Does not
drive. No DME. No service and no HC-POA. PCP is Dr. Jiménez at and Pharmacy is [facility] on [address] in . Discharge POC: Home with no needs.
--- NOTE | 2024-09-28 14:23 | CM ---
Patient has been medically cleared for discharge to home with no additional skilled services. Family to transport home.
== END 2024-09-28 14:19 | disposition home or self-care (01) | DRG 39 ==
LOC: ICU 09:00
PROVIDERS: Nurse Practitioner Acute Care; ADMITTING PHYSICIAN Surgery Vascular Surgery; CONSULT PHYSICIAN Internal Medicine
PROC: 03CH0ZZ Extirpation of Matter from Right Common Carotid Artery, Open Approach (ICD-10-PCS; 2024-09-27)
PROC: 03UH0KZ Supplement Right Common Carotid Artery with Nonautologous Tissue Substitute, Open Approach (ICD-10-PCS; 2024-09-27)
DX: I65.21 Occlusion and stenosis of right carotid artery (principal); Z86.73 Personal history of transient ischemic attack (TIA), and cerebral infarction without residual deficits; Z87.891 Personal history of nicotine dependence; I10 Essential (primary) hypertension; Z79.899 Other long term (current) drug therapy
CPT/HCPCS: 88304; 88311; 35301; 36415; 71046; 80048; 83735; 85025; 85027; 85610; 85730; 86850; 86900; 86901; 95938; 95941; 95955

== ENCOUNTER → 2024-10-30 14:23 | Outpatient (REF) | payer OTHER, SELFPAY | LOC: RAD 14:23 | PROVIDERS: ATTENDING PHYSICIAN Registered Nurse; REFERRING PHYSICIAN Family Medicine | DX: I65.22 Occlusion and stenosis of left carotid artery (principal); I65.21 Occlusion and stenosis of right carotid artery | CPT/HCPCS: 93880 ==